=== PATIENT | female | born 1930 | race Caucasian/White ===

== ENCOUNTER 2017-08-31 09:38 | Day surgery (SDC) | payer MEDICARE ==
[2017-08-31] MEDS ORDERED: acetaZOLAMIDE TAB* 250 MG ONE (11:39)
[2017-08-31] MEDS ORDERED: Lidocaine 1% MPF* 2 ML VIAL ONE (11:39)
[2017-08-31] MEDS ORDERED: Buffered Lidocaine 0.9% SYRIN* 5 ML/SYR SYRINGE ONE (11:39)
[2017-08-31] MEDS ORDERED: Neomycin/Polymy/Dex OPTH.SUSP* MAXITROL 0.1% 5 ML ONE (11:39)
[2017-08-31] MEDS ORDERED: Povidone Iodine 5% OPTH* 30 ML BTL ONE (11:39)
[2017-08-31] MEDS ORDERED: Phenylephrine 2.5% OPTH.SOL* 2 ML BTL ONE (11:39)
[2017-08-31] MEDS ORDERED: Lidocaine 2% EPI 1:200000 MPF* 20 ML VIAL ONE (11:39)
[2017-08-31] MEDS ORDERED: Proparacaine 0.5% OPHTH.SOL* 15 ML BTL ONE (11:39)
[2017-08-31] MEDS ORDERED: Cyclopentolate 1% OPTH.SOL* 2 ML BTL ONE (11:39)
[2017-08-31] MEDS ORDERED: Ketorolac 0.5% OPHTH (NF) 0.5 % 5 ML BTL ONE (11:39)
[2017-08-31] MEDS ORDERED: Midazolam* 1 MG/ML 2 ML VIAL (2 MG) ONE ×2 (12:09→12:19)
--- NOTE | 2017-08-31 22:50 | OP ---
DATE OF OPERATION: 08/31/17 [facility] DATE OF : [birth year] SURGEON: Jonathan Garcia MD PREOPERATIVE DIAGNOSIS: Cataract, right eye. POSTOPERATIVE DIAGNOSIS: Cataract, right eye. OPERATIVE PROCEDURE: Phacoemulsification, right eye with IOL. DESCRIPTION OF PROCEDURE: The patient was brought to the operating room after being given 1/2% Alcaine with epinephrine drops in the preoperative area. The eye was prepped and draped in the usual sterile fashion. Sterile drape and eyelid speculum were placed. Again, topical 1/2% Alcaine with epinephrine was given. A paracentesis incision was made at the 9 o'clock position with the No.75 blade. Clear cornea incision 2.2 x 2.2-mm was created at the 12 o'clock position starting at the anterior limbus using the 2.2-mm keratome. The anterior chamber was irrigated with 0.4 mL of 1% non-preservative intracameral lidocaine and filled with DisCoVisc. A capsulorrhexis was completed using the cystotome and the Utrata forceps. Hydrodissection was performed with balanced salt solution. The lens nucleus was removed with the Phacoemulsification handpiece without incident. Cortex was removed with the irrigation-aspiration handpiece. The capsular bag was re-inflated using DisCoVisc and an SN60WF 24.5 implant was inserted with the shooter. The irrigation-aspiration handpiece was used to remove all residual DisCoVisc. The eye was refilled with balanced salt solution and the wound checked and found to be watertight. Topical Maxitrol drops were given. [id number]/[facility] #: [id number] [facility]
== END 2017-08-31 13:00 | disposition home or self-care (01) ==
LOC: OREAST 09:38
PROVIDERS: ATTEND Specialist
DX: H25.11 Age-related nuclear cataract, right eye (principal); H43.813 Vitreous degeneration, bilateral; E03.9 Hypothyroidism, unspecified; I10 Essential (primary) hypertension; H52.229 Regular astigmatism, unspecified eye; F41.9 Anxiety disorder, unspecified; M19.90 Unspecified osteoarthritis, unspecified site
CPT/HCPCS: A9270-GY; J2250; V2632

== ENCOUNTER 2017-09-28 07:36 | Day surgery (SDC) | payer MEDICARE ==
[2017-09-28] MEDS ORDERED: Buffered Lidocaine 0.9% SYRIN* 5 ML/SYR SYRINGE ONE (07:47)
[2017-09-28] MEDS ORDERED: Cyclopentolate 1% OPTH.SOL* 2 ML BTL ONE (07:47)
[2017-09-28] MEDS ORDERED: Phenylephrine 2.5% OPTH.SOL* 2 ML BTL ONE (07:47)
[2017-09-28] MEDS ORDERED: Lidocaine 1% MPF* 2 ML VIAL ONE (07:47)
[2017-09-28] MEDS ORDERED: Neomycin/Polymy/Dex OPTH.SUSP* MAXITROL 0.1% 5 ML ONE (07:47)
[2017-09-28] MEDS ORDERED: Povidone Iodine 5% OPTH* 30 ML BTL ONE (07:47)
[2017-09-28] MEDS ORDERED: Proparacaine 0.5% OPHTH.SOL* 15 ML BTL ONE (07:47)
[2017-09-28] MEDS ORDERED: acetaZOLAMIDE TAB* 250 MG ONE (07:47)
[2017-09-28] MEDS ORDERED: Ketorolac 0.5% OPHTH (NF) 0.5 % 5 ML BTL ONE (07:47)
[2017-09-28] MEDS ORDERED: Lidocaine 2% EPI 1:200000 MPF* 20 ML VIAL ONE (07:47)
--- NOTE | 2017-09-28 09:52 | OP ---
DATE OF OPERATION: 09/28/17 - [facility] DATE OF : [birth year] SURGEON: Jonathan Garcia M.D. PREOPERATIVE DIAGNOSIS: Cataract left eye. POSTOPERATIVE DIAGNOSIS: Cataract left eye. OPERATIVE PROCEDURE: Phacoemulsification left eye with IOL. DESCRIPTION OF PROCEDURE: The patient was brought to the operating room after being given 1/2% Alcaine with epinephrine drops in the preoperative area. The eye was prepped and draped in the usual sterile fashion. Sterile drape and eyelid speculum were placed. Again, topical 1/2% Alcaine with epinephrine was given. A paracentesis incision was made at the 3 o'clock position with the No.75 blade. Clear cornea incision 2.2 x 2.2-mm was created at the 6 o'clock position starting at the anterior limbus using the 2.2-mm keratome. The anterior chamber was irrigated with 0.4 mL of 1% non-preservative intracameral lidocaine and filled with DisCoVisc. A capsulorrhexis was completed using the cystotome and the Utrata forceps. Hydrodissection was performed with balanced salt solution. The lens nucleus was removed with the Phacoemulsification handpiece without incident. Cortex was removed with the irrigation-aspiration handpiece. The capsular bag was re-inflated using DisCoVisc and an SN60WF 24.5 Implant was inserted with the shooter. The irrigation-aspiration handpiece was used to remove all residual DisCoVisc. The eye was refilled with balanced salt solution and the wound checked and found to be watertight. Topical Maxitrol drops were given. [id number]/[facility] #: [id number] [facility]
== END 2017-09-28 10:06 | disposition home or self-care (01) ==
LOC: OREAST 07:36
PROVIDERS: ATTEND Specialist
DX: H25.12 Age-related nuclear cataract, left eye (principal); H43.813 Vitreous degeneration, bilateral; H52.229 Regular astigmatism, unspecified eye; E03.9 Hypothyroidism, unspecified; I10 Essential (primary) hypertension; F41.9 Anxiety disorder, unspecified
CPT/HCPCS: A9270-GY; V2632

== ENCOUNTER 2018-03-02 09:27 | Inpatient (IN) | payer MEDICARE ==
--- NOTE | 2018-02-17 23:26 | HP ---
HISTORY AND PHYSICAL: DATE OF ADMISSION/SURGERY: 03/02/18 DATE OF HISTORY AND PHYSICAL: 02/17/18 SURGEON: Dr. Bridget Sanders.* (DICTATED BY VANCE RIBEIRO) PROCEDURE: Left total knee replacement. CHIEF COMPLAINT: Left knee pain. HISTORY OF PRESENT ILLNESS: Ms. Guerra is an 88-year-old female with a 2-year history of increasingly severe left knee pain. This has gotten to a 5/5 pain in left knee. She has pain along the joint line, increased by walking more than half a block as well as climbing stairs. She does report that she is not able to do her typical activities due to the pain. She has tried anti- inflammatories, intra-articular injections, and physical therapy without improvement. At this point, would like to proceed with a left total knee replacement. She denies any history of DVT or PE, and has no previous problems with anesthesia. She had an EKG about 1 to 2 weeks ago by her PCP and has been cleared for surgery by her primary care. PAST MEDICAL HISTORY: Includes mild cognitive impairment, anxiety, hypertension , and hypothyroidism. PAST SURGICAL HISTORY: Includes appendectomy and D and C as well as excision. MEDICATIONS: 1. Alprazolam ER 0.5 mg. 2. Hydrochlorothiazide 25 mg. 3. Liothyronine 5 mcg. 4. Lisinopril 20 mg. 5. Memantine HCl 10 mg b.i.d. ALLERGIES: VICODIN, which causes nausea. FAMILY MEDICAL HISTORY: She denies. SOCIAL HISTORY: She denies any tobacco use. She has one drink of alcohol per week, and she denies any illicit drug use. REVIEW OF SYSTEMS: Positive for history of thyroid disease as well as anxiety as well as her current complaint as outlined in the HPI above. She does endorse the ability to walk a city block or flight of stairs without being stopped for shortness of breath or chest pain. Otherwise, a 12-point system review was grossly negative. PHYSICAL EXAMINATION GENERAL: She is a well-nourished, well-developed, 88-year-old female, in no acute distress. Alert and oriented x3 with no gross neurological deficiencies. She has an antalgic gait, which she is favoring her left knee. VITAL SIGNS: Height 65 inches, weight 134 pounds, pulse 108, blood pressure 142 /84, BMI 22.3. HEENT: Normocephalic, atraumatic. Pupils are equally round and reactive to light. Extraocular movements grossly intact. NECK: Supple. No palpable cervical lymph nodes. Thyroid is smooth and nontender. PULMONARY: Lungs are clear to auscultation bilaterally with no wheezes, rales, or rhonchi. CARDIAC: Regular rate and rhythm with no murmurs, rubs, or gallops appreciated. No pedal edema bilaterally. 2+ DP and PT pulses bilaterally. MUSCULOSKELETAL: Her left lower extremity, skin is intact. No abrasions or open wounds. Moderate effusion at the knee. Arthritic-appearing joint along the medial joint line. No palpable masses or lymph nodes. No varus or valgus instability. Range of motion is from 10 to 120 degrees flexion with pain and patellofemoral crepitus. Distally, there is no edema or varicosities or hyperreflexia. She is neurovascularly intact distally. DIAGNOSTIC STUDIES: Multiple views of the left knee were reviewed on the PAC system showing [id number] contact in the medial joint space, tri- compartmental joint space narrowing, osteophyte formation, and subchondral sclerosis as well. PLAN: Candace Guerra is scheduled to undergo left total knee replacement with Dr. Bridget Sanders on 03/02/18. She will return to clinic 10 to 14 days after surgery for followup and suture removal. She did mention today that she is concerned about going directly home and will likely require rehab as she has no one to take care of her at home. She will be prescribed pain medication on discharge from the hospital and will be on Coumadin for DVT prophylaxis. All questions were answered today. VANCE RIBEIRO [id number]/[facility] #: [id number] [facility]
[~2018-03-02 09:27] MED LIST: Buffered Lidocaine 0.9% SYRIN* 5 ML/SYR SYRINGE INTRADERM ONE; Dexamethasone IV* 4 MG/ML 1 ML (4 MG) IV SLOW PU ONE; Famotidine TAB* 20 MG PO ONE; Lidocaine 2% PF * 5 ML VIAL ONE; Midazolam* 1 MG/ML 2 ML VIAL (2 MG) ONE; Propofol* 500 MG/50 ML BTL ONE; fentaNYL* 50 MCG/ML 2 ML VIAL (100 MCG VIAL) ONE
[2018-03-02] MEDS ORDERED: Propofol* 10 MG/ML 20 ML BTL IV PUSH ONE (09:31)
[2018-03-02] MEDS ORDERED: fentaNYL* 50 MCG/ML 2 ML VIAL (100 MCG VIAL) ONE (09:32)
[2018-03-02] MEDS ORDERED: Famotidine TAB* 20 MG ONE (09:36)
[2018-03-02] MEDS ORDERED: Buffered Lidocaine 0.9% SYRIN* 5 ML/SYR SYRINGE ONE (09:37)
[2018-03-02] MEDS ORDERED: Dexamethasone IV* 4 MG/ML 1 ML (4 MG) ONE (09:37)
[2018-03-02] MEDS ORDERED: Morphine PF AMP (0.5MG/ML)* 5 MG/10 ML AMP ONE (11:47)
[2018-03-02] MEDS ORDERED: Bupivacaine 0.5%* 50 ML VIAL ONE (12:00)
[2018-03-02] MEDS ORDERED: ceFAZolin 2 GM PREMIX (*) 2 GM/50 ML BAG IVPB ONE (12:09)
[2018-03-02] MEDS ORDERED: Ondansetron INJ* 2 MG/ML VIAL ONE (12:33)
[2018-03-02] MEDS ORDERED: diPHENhydraMINE IV* 50 MG/ML 1 ml VIAL (BENADRYL) IV PRN ×2 (12:49→12:51)
[2018-03-02] MEDS ORDERED: oxyCODONE TAB* 5 MG TAB PO PRN ×2 (12:49→12:51)
[2018-03-02] MEDS ORDERED: Ondansetron INJ* 2 MG/ML VIAL IV PRN ×2 (12:49→12:51)
[2018-03-02] MEDS ORDERED: fentaNYL* 50 MCG/ML 2 ML VIAL (100 MCG VIAL) IV PRN (12:49)
[2018-03-02] MEDS ORDERED: PROCHLORPERAZINE INJ 5 MG/ML 2 ML VIAL IV PRN ×2 (12:49→12:51)
[2018-03-02] MEDS ORDERED: Naloxone* 0.4 MG/ML 1 ML VIAL IV PRN ×2 (12:49→12:55)
[2018-03-02] MEDS ORDERED: HYDROmorphone INJ* 1 MG/ML CARPUJECT SYRINGE IV PRN (12:49)
[2018-03-02] MEDS ORDERED: EPHEDrine (Pressors)* 50 MG/ML VIAL IV PUSH PRN (12:51)
[2018-03-02] MEDS ORDERED: Acetaminophen TAB* 325 MG PO PRN (12:51)
[2018-03-02] MEDS ORDERED: OBEPIDURAL* 250 ML EPIDURAL SCH (13:00)
[2018-03-02] MEDS ORDERED: Bisacodyl SUPP* 10 MG SUPP PR PRN (13:17)
[2018-03-02] MEDS ORDERED: Magnesium Hydroxide LIQ* 30 ML UDC PO PRN (13:17)
--- NOTE | 2018-03-02 15:17 | RAD ---
INDICATION: Status post total left knee replacement surgery. COMPARISON: Comparison is made with prior study from October 24, 2017. TECHNIQUE: 2 views of the left knee were obtained. FINDINGS: The patient is status post total left hip replacement surgery. The bones and prostheses are in normal alignment. There is a surgical drain present adjacent to the anterior distal aspect of the femur. IMPRESSION: STATUS POST TOTAL LEFT KNEE REPLACEMENT SURGERY.
[2018-03-02] MEDS ORDERED: Warfarin TAB(*) 6 MG PO ONE (17:00)
[2018-03-02] MEDS: D5W 1/2 NS 1000 ML BAG* 1,000 ML IV SCH (18:08)
[2018-03-02] MEDS: ceFAZolin 1 GM in Dextrose (*) 1 GM/50 ML BAG IVPB SCH (19:30)
[2018-03-02] MEDS: Docusate CAP* 100 MG PO SCH (19:33)
[2018-03-02] MEDS: Magnesium Hydroxide LIQ* 30 ML UDC PO SCH (19:33)
[2018-03-02] MEDS: Memantine TAB* 5 MG PO SCH (19:33)
[2018-03-02] MEDS: Mirtazapine TAB* 15 MG PO SCH (19:37)
[2018-03-02] MEDS: Scopolamine 1.5 mg* PATCH TRANSDERM SCH (19:38)
--- NOTE | 2018-03-02 21:35 | CONS ---
CC: Dr. Browne; Dr. Bridget Sanders; Dr. Darrin Cobb * CONSULTATION REPORT: DATE OF CONSULT: 03/02/18 PRIMARY CARE PROVIDER: Dr. Browne. CONSULTING PROVIDER: Dr. Bridget Sanders. MY ATTENDING WHILE IN THE HOSPITAL: Dr. Darrin Cobb. REASON FOR CONSULT: Comanagement of comorbid medical conditions. HISTORY OF PRESENT ILLNESS: Ms. Guerra is an 88-year-old female with past medical history significant for mild cognitive impairment, hypertension, hypothyroidism, recent pneumonia, and osteoarthritis in her left knee. The patient has just undergone a left total knee replacement. The patient had spinal anesthesia and estimated blood loss of 250 mL. The patient is seen postoperatively and is doing very well. The patient denies any pain. The patient has no sensation in her lower extremities. The patient is thirsty. The patient has no shortness of breath, chest pain, nausea, vomiting, dizziness , palpitations. The patient has had no recent illnesses except for pneumonia in November. The patient was first prescribed azithromycin and then changed to "a stronger antibiotic" she is unknown if it is quinolone or not. The patient has also had asymptomatic urinary tract infection 1 week ago and was treated with Bactrim. The patient had no other recent changes in diet, medications, exercise tolerance, swelling in her legs or other alarming symptoms. PAST MEDICAL HISTORY: Mild cognitive impairment, anxiety, hypertension, hypothyroidism, pneumonia. PAST SURGICAL HISTORY: Appendectomy, D and C, breast lump excision. MEDICATIONS: 1. Alprazolam 0.5 mg p.o. t.i.d. as needed. 2. Mirtazapine 15 mg p.o. at bedtime. 3. Metamucil 660 g p.o. q.p.m. 4. Casper-3 fatty acid 1 each p.o. q.a.m. 5. Melatonin 5 mg p.o. q.p.m. 6. Lutein 40 mg p.o. q.a.m. 7. Cholecalciferol 1000 units p.o. q.a.m. 8. Ascorbic acid 3000 mg p.o. q.a.m. 9. Ibuprofen 200 mg p.o. daily as needed. 10. Tylenol 1000 mg p.o. b.i.d. as needed. 11. Mucinex 1 tab p.o. b.i.d. as needed. 12. Memantine 10 mg p.o. b.i.d. 13. Lisinopril 20 mg p.o. q.a.m. 14. Levothyroxine 50 mcg p.o. q.a.m. 15. Hydrochlorothiazide 12.5 mg p.o. q.a.m. 16. Glucosamine 2000 mg p.o. q.p.m. ALLERGIES: VICODIN, which causes nausea. FAMILY HISTORY: The patient's mother of colon cancer. The patient's father of emphysema. The patient has 4 children, all are healthy except for 1 son who had a stent. SOCIAL HISTORY: The patient had smoked two packs a week from the age of 17 to 1979. The patient has one drink of alcohol a week. The patient denies any illicit drug use. The patient lives with her . 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 REVIEW OF SYSTEMS: A 14-point review of systems was reviewed and is negative except as above. PHYSICAL EXAM: General: The patient is an 88-year-old female, who appears younger than stated age and sitting comfortably in bed, in no acute distress. Vital Signs: Temperature 97.2, pulse rate 86, respiratory rate 12, oxygen saturation 99% on 4 L, blood pressure 110/73. HEENT: Head normocephalic, atraumatic. Sclerae anicteric. No conjunctival injection. Nasal mucosa is moist. Oral mucosa moist. No pharyngeal erythema, discharge, or exudate. Neck : Supple. Nontender. No lymphadenopathy. No carotid bruits auscultated. No JVD. Cardiac: Regular rate and rhythm. No clicks, murmurs, gallops, or rubs. Pulses 2+ in bilateral dorsalis pedis, posterior tibial, and radial areas. Respiratory: Clear to auscultation bilaterally. No wheezes, rales, or rhonchi. Good air exchange bilaterally. Abdomen: Soft, nontender, nondistended. Bowel sounds normoactive in all 4 quadrants. No hepatosplenomegaly. No abdominal bruits auscultated. Skin: Clean, dry, and intact. No rash except for left-sided surgical incision covered with bulky dressing. Neuro: Cranial nerves II through XII intact. No focal deficits. Decreased sensation, but preserved motor function in the bilateral lower extremities. Psychiatric: Very pleasant and cooperative. LABORATORY DATA: From 02/17/18, white blood cell count 5.4, hemoglobin 12.5, hematocrit 38, platelet count 231. INR 0.88, aPTT 35.5. Sodium 138, potassium 3.5, chloride 105, carbon dioxide 26, anion gap 7, BUN 16, creatinine 0.97, glucose 93, calcium 91. Bilirubin 0.5, AST 19, ALT 15, alkaline phosphatase 70. Urine is unremarkable. ASSESSMENT AND PLAN: Ms. Guerra is an 88-year-old female status post left total knee replacement with past medical history of mild cognitive impairment, hypertension, hypothyroidism, pneumonia. The patient is doing well post- operatively. 1. Status post left total knee replacement. Management per primary team. The patient preferred to start with Tylenol for pain control. The patient has allergy to VICODIN. No harsh reaction to other opiate pain medications. The patient has no pain at this time. The patient was not anemic preoperatively. H and H should be monitored. Bowel regimen per primary team. 2. Hypertension. The patient is currently normotensive. The patient took her hydrochlorothiazide on the morning of surgery, but not her lisinopril. Both of these will be held tomorrow morning due to spinal anesthesia and reintroduced as needed, they can be reintroduced sooner if needed. 3. Anxiety. Continue the patient's alprazolam as needed. Caution should be used with co-administration with opiates. 4. Hypothyroidism. Continue Synthroid. 5. History of pneumonia. The patient should be instructed on the use of incentive spirometer. 6. DVT prophylaxis. Lovenox to warfarin per primary team. 7. FEN. The patient will have fluids per primary team. Caution should be used due to patient's age. 8. Code status. The patient will be full code. The patient's surrogate decision maker is her daughter, Suyapa Palacio. 9. Disposition. The patient admitted inpatient, disposition per primary team. TIME SPENT: Approximately 60 minutes was spent on this consultation, 30 of which was spent [id number] with the patient, obtaining history and physical and discussing treatment plan. This plan has been discussed with my attending, Dr. Darrin Cobb; he is in agreement. VANCE JOSEPH [id number]/[facility] #: [id number] [facility]
[2018-03-03] MEDS: ceFAZolin 1 GM in Dextrose (*) 1 GM/50 ML BAG IVPB SCH ×2 (03:56→12:17)
[2018-03-03] MEDS: Levothyroxine TAB* 50 MCG TAB PO SCH (05:37)
[2018-03-03] MEDS: oxyCODONE/Acetamin 5/325 MG* TAB PO PRN ×4 (05:38→20:52)
[2018-03-03] MEDS ORDERED: diPHENhydraMINE IV* 50 MG/ML 1 ml VIAL (BENADRYL) IV PRN (06:00)
[2018-03-03] MEDS ORDERED: Ondansetron INJ* 2 MG/ML VIAL IV PRN (06:00)
[2018-03-03] MEDS ORDERED: Morphine INJ* 2 MG/ML 1 ML CARPUJECT IV PRN (06:00)
[2018-03-03 06:42] LABS: Hematocrit 28 % (35-47); Hemoglobin 9.4 g/dl (12.0-16.0); Mean Platelet Volume 7.4 um3 (7.4-10.4); Platelet Count 206 10^3/ul (150-450)
[2018-03-03 06:52] LABS: INR 0.96 (0.77-1.02)
[2018-03-03 06:59] LABS: EGFR Non-African American 50.5 (>60)
--- NOTE | 2018-03-03 08:22 | OP ---
DATE OF OPERATION: 03/02/18 - ROOM #350 DATE OF : [birth year] SURGEON: Bridget Sanders MD QUALITY INSPECTOR: VANCE Amor. Ms. Wong did help throughout the procedure with preparation of the leg, wound retraction, manipulation of the knee and wound closure. ANESTHESIOLOGIST: Dr. Riveor. ANESTHESIA: Spinal. PRE-OP DIAGNOSIS: Severe end-stage degenerative osteoarthritis of the left knee joint. POST-OP DIAGNOSIS: Severe end-stage degenerative osteoarthritis of the left knee joint. OPERATIVE PROCEDURE: Left total knee arthroplasty. COMPLICATIONS: None. TOURNIQUET TIME: 46 minutes. ESTIMATED BLOOD LOSS: 300 cc. SPECIMENS: Bone and cartilage from the left knee joint sent to Pathology. HARDWARE USED: Hardware was a cemented [employer] total knee arthroplasty hardware. Two packages of Simplex bone cement. For the femur, a size 5 left posterior stabilized narrow Legion femoral component. For the tibia , a size 3 left tibial baseplate Cory II. For the insert, an 11 mm posterior stabilized articular insert, size 3/4. For the patella, a size 32-mm 3-peg all poly patella with 7.5 thickness. BRIEF HISTORY/INDICATIONS: Ms. Guerra is an 88-year-old female with years of increasingly severe left knee pain. Over the last 6 months, the pain became excruciating and she was hardly able to ambulate. Radiograph showed severe bone -on- bone arthritis. The patient has failed conservative treatment, anti- inflammatories, pain medications, intra-articular injections, as well as ambulatory assistive devices. She elected to undergo left total knee arthroplasty due to decreased quality of life and uncontrolled pain. Informed consent was obtained from the patient. She understood the risks of the surgery included but were not limited to, bleeding infection, damage to nearby structures, continued pain, need for further surgery, intraoperative fracture, nerve palsy, hardware failure or loosening, knee stiffness, loss of motion, stroke, heart attack, blood clot and . She wished to proceed. INTRAOPERATIVE FINDINGS: Intraoperatively, the patient was noted to have severe end-stage arthritis with tricompartmental loss of cartilage. She had extensive osteophyte formation. DESCRIPTION OF PROCEDURE: Ms. Gurera was identified in the preanesthesia unit. Her left lower extremity was marked as the correct operative side. Informed consent was signed and placed in the chart. The patient was taken to the operating room and placed under spinal anesthesia. A Holman catheter was placed. Tourniquet was placed on the left thigh. The left lower extremity was prepped and draped in the usual sterile fashion. Preop time-out was made to correctly identify the patient, side and site. Appropriate perioperative antibiotics were given within 1 hour of incision. Tourniquet was inflated and total tourniquet time for this procedure was 46 minutes. A midline incision was made with a 10 blade and carried down to the extensor mechanism. A new 10 blade was used to make a standard medial parapatellar arthrotomy. The patella was subluxed laterally. Electrocautery was used to subperiosteally elevate the soft tissue off the superomedial tibia to the mid sagittal plane. The knee was flexed up. The anterior horn of the lateral meniscus and ACL were sharply released. A drill was used to enter the distal femur. Intramedullary distal femoral cutting guide was pinned on the distal femur. Oscillating saw was used to make the distal femoral cut. Next, the external rotation guide was pinned on the distal femur. Distal femur was sized to a size 5. Size 5 multi cutting jig was pinned on the distal femur. Oscillating saw was used to make the appropriate chamfer cuts. Extramedullary tibial cutting guide was pinned on the proximal tibia. The oscillating saw was used to make the proximal tibial cut perpendicular to the mechanical axis of the tibia. The bone was carefully removed. The knee was brought out into full extension. A spacer block had good fit with the knee in full extension. Medial and lateral ligaments were well balanced. Some osteophytes were removed from along the medial tibial plateau. Flexion and extension gaps were well balanced. The knee was flexed up. Lamina personal service workers was placed both medially and laterally. Any remaining meniscus was carefully removed using electrocautery. Curved osteotome was used to remove posterior osteophytes. Tibial tray and drop yoselyn were placed and once again confirmed a satisfactory tibial cut. A left size 5 narrow femoral trial was impacted on to the distal femur and had good fit. The box for the posterior stabilized implant was prepared using a reamer and box cut osteotome. Size 3 tibial tray trial with an 11 mm insert trial was placed. The knee was taken through a range of motion and had full extension to 130 degrees of flexion. There was satisfactory patellofemoral tracking. The patella was everted. 7 mm of patellar bone and cartilage were carefully removed using an oscillating saw. The patella was sized to a size 32. Three peg holes were drilled through the size 32 guide. The 32 trial patella with 7.5 thickness was placed and the knee was taken through a range of motion. There was satisfactory patellofemoral tracking. All trials were carefully removed. The tibia was subluxed anteriorly and sized to a size 3. Proximal tibia was prepared using a size 3 keel punch. All bony cut surfaces were copiously irrigated with sterile saline and dried. Final implants were cemented into place, starting with the tibia followed by the femur and last the patella. An 11-mm insert was placed and the knee was brought into full extension. Tourniquet was turned down at 46 minutes. The knee was copiously irrigated with sterile saline. Electrocautery was used to obtain meticulous hemostasis. Once the cement had fully cured, the insert trial was removed. Any excess cement was removed from around the capsule and hardware. Final insert chosen was an 11 mm posterior stabilized articular insert cory II size 3/4. This was locked into position on the tibial tray. Stability of the insert was checked and rechecked and noted to be stable. The extensor mechanism was closed using interrupted #1 Vicryl over a medium Hemovac drain. The rest of the incision was closed in a layered fashion using 0 and 2-0 Vicryl. The skin was closed using running 3-0 nylon suture. Sterile Xeroform, 4 x 4s, and Webril were used to cover the incision. Gary wrap and cold pack were placed over this. The patient's anesthesia was reversed without difficulty. She was taken to the PACU in stable condition. Intended weightbearing will be weightbearing as tolerated. Intended DVT prophylaxis will be Coumadin with a Lovenox bridge. [id number]/[facility] #: [id number] [facility]O
[2018-03-03] MEDS ORDERED: NON FORMULARY MED* (Lisinopril [Prinivil Tab 20 Mg] 20 MG) PO SCH (09:00)
[2018-03-03] MEDS ORDERED: Hydrochlorothiazide TAB* 25 MG PO SCH (09:00)
[2018-03-03] MEDS: Memantine TAB* 5 MG PO SCH ×2 (09:15→20:56)
[2018-03-03] MEDS: Vitamin THERAPEUTIC TAB PO SCH (09:15)
[2018-03-03] MEDS: Docusate CAP* 100 MG PO SCH ×2 (09:17→20:52)
[2018-03-03] MEDS: Magnesium Hydroxide LIQ* 30 ML UDC PO SCH ×2 (09:17→20:52)
--- NOTE | 2018-03-03 11:26 | PN ---
Progress Note - Progress Note Date of Service: 03/03/18 SOAP: Subjective: 88 y/o female s/p L TKA by Dr Sanders. VSS, afebrile overnight. Patient reports pain controlled well at times, other times with increased pain. Concerned about falling, still unsteady at times. Objective: General- Well appearing, NAD, AO resting in bed comfortably, daughter at bedside. MSK- LLE- DF/PF = b/l, PT 2+, negative homans sign, surgical dressing intact, no drainage, odor noted. SITLT Vital Signs Temp 97.8 F 03/03/18 07:57 Pulse 65 03/03/18 07:57 Resp 18 03/03/18 09:17 BP 101/40 03/03/18 07:57 Pulse Ox 100 03/03/18 08:00 Intake & Output 03/02/18 03/03/18 03/03/18 18:59 06:59 18:59 Intake Total 1876 044 8305 Output Total 1100 525 Balance 275 356 3076 Weight 61.235 kg Intake: IV Fluids 1900 1070 D5W 1/2 NS 1070 LR 1900 IVPB 50 ABX - CEFAZOLIN 50 Oral 710 220 Output: Holman 800 525 Residual 50 Holman 16 Fr 50 Estimated Blood Loss 250 Other: # Bowel Movements 0 Assessment: Stable 88 y/o female s/p L TKA by Dr Sanders Plan: - DVT prophylaxis- lovenox, coumadin 5mg tonight. - Continue PT/ OT - Follow up with Dr. Sanders within 10-14 days post-op - H&H - stable - post-op IV ABX - running - Likely rehab due to age, living alone- nathan vs [facility] Acetaminophen (Tylenol Tab*) 650 mg PO Q4H PRN PRN Reason: PAIN OR TEMPERATURE Alprazolam (Xanax Tab*) 0.5 mg PO TID PRN PRN Reason: ANXIETY Bisacodyl (Dulcolax Supp*) 10 mg [place] DAILY PRN PRN Reason: constipation Cyclobenzaprine HCl (Flexeril Tab*) 5 mg PO TID PRN PRN Reason: SPASMS Diphenhydramine HCl (Benadryl Iv*) 12.5 mg IV Q6H PRN PRN Reason: PRURITIS Docusate Sodium (Colace Cap*) 100 mg PO BID [facility] Last Admin: 03/03/18 09:17 Dose: Not Given Enoxaparin Sodium (Lovenox(*)) 30 mg SUBCUT Q24H [facility] Dextrose/Sodium Chloride (D5w 1/2 Ns 1000 Ml Bag*) 1,000 mls @ 75 mls/hr IV PER RATE [facility] Last Admin: 03/02/18 18:08 Dose: 75 mls/hr Cefazolin Sodium/Dextrose (Kefzol 1 Gm In Dextrose Duplex (*)) 1 gm in 50 mls @ 200 mls/hr IVPB Q8H [facility] Stop: 03/03/18 12:14 Last Admin: 03/03/18 03:56 Dose: 200 mls/hr Levothyroxine Sodium (Synthroid Tab*) 50 mcg PO 0600 [facility] Last Admin: 03/03/18 05:37 Dose: 50 mcg Magnesium Hydroxide (Milk Of Magnesia Liq*) 30 ml PO BID [facility] Last Admin: 03/03/18 09:17 Dose: Not Given Magnesium Hydroxide (Milk Of Magnesia Liq*) 30 ml PO Q6H PRN PRN Reason: constipation Memantine (Namenda Tab*) 10 mg PO BID [facility] Last Admin: 03/03/18 09:15 Dose: 10 mg Mirtazapine (Remeron Tab*) 15 mg PO BEDTIME [facility] Last Admin: 03/02/18 19:37 Dose: 15 mg Morphine Sulfate (Morphine Inj (Syringe)*) 2 mg IV Q2H PRN PRN Reason: PAIN Multivitamins (Theragran Tab*) 1 tab PO DAILY [facility] Last Admin: 03/03/18 09:15 Dose: 1 tab Naloxone HCl (Narcan*) 0.08 mg IV Q2M PRN PRN Reason: severe induced resp depression Stop: 03/03/18 12:48 Naloxone HCl (Narcan*) 0.08 mg IV Q2M PRN PRN Reason: severe induced resp depression Stop: 03/03/18 12:54 Ondansetron HCl (Zofran Inj*) 4 mg IV Q6H PRN PRN Reason: nausea Oxycodone HCl (Roxycodone Tab*) 5 mg PO ONCE PRN PRN Reason: PAIN - MODERATE Stop: 03/03/18 19:00 Oxycodone/Acetaminophen (Percocet 5/325 Tab*) 2 tab PO Q4H PRN PRN Reason: PAIN - MODERATE TO SEVERE Oxycodone/Acetaminophen (Percocet 5/325 Tab*) 1 tab PO Q4H PRN PRN Reason: PAIN - MODERATE Last Admin: 03/03/18 05:38 Dose: 1 tab Pharmacy Profile Note (Scopolamine Patch Remove*) 1 note PATCH OFF .AFTER 72 HOURS ONE Stop: 03/05/18 12:53 Scopolamine (Transderm-Scop 1.5 Mg Patch*) 1 patch TRANSDERM Q72H [facility] Last Admin: 03/02/18 19:38 Dose: Not Given
[2018-03-03] MEDS: Enoxaparin(*) 30 MG/0.3 ML SYR SUBCUT SCH (12:17)
[2018-03-03] MEDS: Cyclobenzaprine TAB* 10 MG PO PRN ×2 (12:23→23:55)
[2018-03-03] MEDS ORDERED: Morphine VIAL* 4 MG/ML VIAL (1 ml vial) IV PRN (13:41)
[2018-03-03] MEDS ORDERED: Morphine VIAL* 4 MG/ML VIAL (1 ml vial) IV ONE (13:42)
[2018-03-03] MEDS: D5W 1/2 NS 1000 ML BAG* 1,000 ML IV SCH ×2 (14:39→19:30)
[2018-03-03] MEDS ORDERED: Warfarin TAB(*) 5 MG PO ONE (17:00)
[2018-03-03] MEDS ORDERED: oxyCODONE TAB* 5 MG TAB ONE (17:18)
[2018-03-03] MEDS ORDERED: oxyCODONE TAB* 5 MG TAB PO PRN (17:22)
[2018-03-03] MEDS ORDERED: NS 0.9% 500 ML* 500 ML IV ONE (19:00)
--- NOTE | 2018-03-03 19:20 | PN ---
Hospitalist Progress Note Date of Service: 03/03/18 CAT CALL for hypotension 70/40s in 88 female with left knee surgery. Complaint of associated light headedness/malaise. Happened also working in PT earlier today. no history of CHF. 500cc NS given with improvement on manual check 100s/60s. improved mentation. Afebrile, HR 70s. EKG NSR Concern for vasovagal presyncope related to pain and previously PT. AM Hgb was 9.3. Pt on coumadin, lovenox CBC, CMP, Lactic Acid, Troponin pending. telemetry started. keep in SSU for now. manual pressures if automatic low. continue pain control as ordered.
[2018-03-03 19:24] LABS: ABS Basophils 0.1 10^3/ul (0-0.2); ABS Eosinophils 0.1 10^3/ul (0-0.6); ABS Lymphocytes 1.2 10^3/ul (1.0-4.8); ABS Monocytes 0.8 10^3/ul (0-0.8); ABS Neutrophils 6.2 10^3/ul (1.5-7.7); ABS Nucleated RBC 0 10^3/ul; Eosinophil % 0.6 % (0-6); Hematocrit 25 % (35-47); Hemoglobin 8.5 g/dl (12.0-16.0); Lymphocyte % 14.7 % (25-47); Mean Corpuscular HGB Conc 34 g/dl (31-36); Mean Corpuscular Hemoglobin 31 pg (27-31); Mean Corpuscular Volume 90 fL (80-97); Mean Platelet Volume 7.3 um3 (7.4-10.4); Nucleated Red Blood Cells % 0; Platelet Count 191 10^3/ul (150-450); Red Blood Count 2.74 10^6/ul (4.0-5.4); Red Cell Distribution Width 14 % (10.5-15); White Blood Count 8.4 10^3/ul (3.5-10.8)
[2018-03-03 19:39] LABS: EGFR Non-African American 47.3 (>60)
[2018-03-03] MEDS: Mirtazapine TAB* 15 MG PO SCH (20:52)
[2018-03-03] MEDS: Morphine VIAL* 4 MG/ML VIAL (1 ml vial) IV PRN (22:51)
[2018-03-04] MEDS: D5W 1/2 NS 1000 ML BAG* 1,000 ML IV SCH (00:30)
[2018-03-04] MEDS: oxyCODONE/Acetamin 5/325 MG* TAB PO PRN ×2 (03:03→07:58)
[2018-03-04] MEDS: Morphine VIAL* 4 MG/ML VIAL (1 ml vial) IV PRN (03:03)
[2018-03-04] MEDS: ALPRAZolam TAB* 0.25 MG PO PRN ×2 (03:46→18:26)
[2018-03-04] MEDS ORDERED: Morphine VIAL* 4 MG/ML VIAL (1 ml vial) IV PRN (04:03)
[2018-03-04] MEDS ORDERED: Morphine VIAL* 4 MG/ML VIAL (1 ml vial) IV ONE (04:06)
[2018-03-04] MEDS: Levothyroxine TAB* 50 MCG TAB PO SCH (05:53)
[2018-03-04 06:20] LABS: Hematocrit 26 % (35-47); Hemoglobin 8.9 g/dl (12.0-16.0); Platelet Count 172 10^3/ul (150-450)
[2018-03-04 06:29] LABS: INR 1.16 (0.77-1.02)
[2018-03-04] MEDS: Cyclobenzaprine TAB* 10 MG PO PRN ×2 (07:23→19:04)
--- NOTE | 2018-03-04 07:54 | PN ---
Subjective Date of Service: 03/04/18 Interval History: CAT team called last evening for hypotension. BP was 70s/40s while Ms. Guerra was working with PT, and it improved after 500cc NS. This morning, she feels good except for pain in the knee. No chest pain, sob, palpitations, nausea. Objective Active Medications: Acetaminophen (Tylenol Tab*) 650 mg PO Q4H PRN PRN Reason: PAIN OR TEMPERATURE Alprazolam (Xanax Tab*) 0.5 mg PO TID PRN PRN Reason: ANXIETY Last Admin: 03/04/18 03:46 Dose: 0.5 mg Bisacodyl (Dulcolax Supp*) 10 mg [place] DAILY PRN PRN Reason: constipation Cyclobenzaprine HCl (Flexeril Tab*) 5 mg PO TID PRN PRN Reason: SPASMS Last Admin: 03/03/18 23:55 Dose: 5 mg Diphenhydramine HCl (Benadryl Iv*) 12.5 mg IV Q6H PRN PRN Reason: PRURITIS Docusate Sodium (Colace Cap*) 100 mg PO BID [facility] Last Admin: 03/03/18 20:52 Dose: 100 mg Enoxaparin Sodium (Lovenox(*)) 30 mg SUBCUT Q24H [facility] Last Admin: 03/03/18 12:17 Dose: 30 mg Dextrose/Sodium Chloride (D5w 1/2 Ns 1000 Ml Bag*) 1,000 mls @ 125 mls/hr IV PER RATE [facility] Last Admin: 03/04/18 00:30 Dose: 125 mls/hr Levothyroxine Sodium (Synthroid Tab*) 50 mcg PO 0600 [facility] Last Admin: 03/04/18 05:53 Dose: 50 mcg Magnesium Hydroxide (Milk Of Magnesia Liq*) 30 ml PO BID [facility] Last Admin: 03/03/18 20:52 Dose: 30 ml Magnesium Hydroxide (Milk Of Magnesia Liq*) 30 ml PO Q6H PRN PRN Reason: constipation Memantine (Namenda Tab*) 10 mg PO BID [facility] Last Admin: 03/03/18 20:56 Dose: 10 mg Mirtazapine (Remeron Tab*) 15 mg PO BEDTIME [facility] Last Admin: 03/03/18 20:52 Dose: 15 mg Morphine Sulfate (Morphine Vial*) 1 mg IV Q2H PRN PRN Reason: PAIN Multivitamins (Theragran Tab*) 1 tab PO DAILY [facility] Last Admin: 03/03/18 09:15 Dose: 1 tab Ondansetron HCl (Zofran Inj*) 4 mg IV Q6H PRN PRN Reason: nausea Last Admin: 03/04/18 04:11 Dose: 4 mg Oxycodone HCl (Roxycodone Tab*) 5 mg PO Q4H PRN PRN Reason: PAIN Last Admin: 03/04/18 05:59 Dose: 5 mg Oxycodone/Acetaminophen (Percocet 5/325 Tab*) 2 tab PO Q4H PRN PRN Reason: PAIN - MODERATE TO SEVERE Last Admin: 03/04/18 03:03 Dose: 2 tab Oxycodone/Acetaminophen (Percocet 5/325 Tab*) 1 tab PO Q4H PRN PRN Reason: PAIN - MODERATE Last Admin: 03/03/18 11:53 Dose: 1 tab Pharmacy Profile Note (Scopolamine Patch Remove*) 1 note PATCH OFF .AFTER 72 HOURS ONE Stop: 03/05/18 12:53 Scopolamine (Transderm-Scop 1.5 Mg Patch*) 1 patch TRANSDERM Q72H [facility] Last Admin: 03/02/18 19:38 Dose: Not Given Vital Signs - 8 hr 03/03/18 03/03/18 03/03/18 23:51 23:52 23:55 Temperature 98.1 F Pulse Rate 94 Respiratory 16 18 18 Rate Blood Pressure 141/62 (mmHg) O2 Sat by Pulse 98 Oximetry 03/04/18 03/04/18 03/04/18 02:40 03:01 03:03 Temperature Pulse Rate 97 Respiratory 18 18 18 Rate Blood Pressure 163/62 (mmHg) O2 Sat by Pulse 95 Oximetry 03/04/18 03/04/18 03/04/18 03:21 03:46 05:56 Temperature 98.0 F 97.2 F Pulse Rate 97 Respiratory 18 18 Rate Blood Pressure 144/76 (mmHg) O2 Sat by Pulse 97 Oximetry 03/04/18 03/04/18 05:59 06:00 Temperature Pulse Rate Respiratory 18 18 Rate Blood Pressure (mmHg) O2 Sat by Pulse Oximetry Oxygen Devices in Use Now: None Appearance: alert, sitting up in recliner, no distress Eyes: No Scleral Icterus Ears/Nose/Mouth/Throat: NL Teeth, Lips, Gums Neck: NL Appearance and Movements; NL JVP Respiratory: Symmetrical Chest Expansion and Respiratory Effort, Clear to Auscultation Cardiovascular: NL Sounds; No Murmurs; No JVD, RRR, No Edema Abdominal: NL Sounds; No Tenderness; No Distention Lymphatic: No Cervical Adenopathy Extremities: No Edema Skin: No Rash or Ulcers Result Diagrams: 03/04/18 06:07 03/03/18 19:12 Assess/Plan/Problems-Billing Assessment: 88 yo female with history of htn admitted for elective R TKA - Patient Problems (1) Orthostatic hypotension Current Visit: Yes Status: Acute Code(s): I95.1 - ORTHOSTATIC HYPOTENSION SNOMED Code(s): 97151847 Comment: received D51/2NS overnight BP acceptable this morning hold am bp meds check orthostatic vitals today and resume antihypertensives as needed (2) S/P total knee arthroplasty Current Visit: Yes Status: Acute Code(s): Z96.659 - PRESENCE OF UNSPECIFIED ARTIFICIAL KNEE JOINT SNOMED Code(s): 1071854838737 Comment: pain control, PT (3) HTN (hypertension) Current Visit: Yes Status: Acute Code(s): I10 - ESSENTIAL (PRIMARY) HYPERTENSION SNOMED Code(s): 48115408 Comment: holding lisinopril/hctz
--- NOTE | 2018-03-04 08:58 | PN ---
Progress Note - Progress Note Date of Service: 03/04/18 SOAP: Subjective: [Pt reports feeling better since CAT team was called last night for hypotension. Denies dizziness, lightheadedness, SOB. Complains of 7/10 pain L knee. Has been working with PT. Slept.] Objective: [A and O x 3, VSS. NAD Seated in chair L knee dressing changed - surgical incision benign. No erythema or drainage. Calf soft, NT, NV intact Vital Signs: Temp Pulse Resp BP Pulse Ox 98.2 F 93 18 137/64 96 03/04/18 07:23 03/04/18 07:23 03/04/18 07:58 03/04/18 07:23 03/04/18 07:23 Laboratory Results - last 24 hr 03/03/18 03/03/18 03/03/18 19:02 19:12 19:12 WBC RBC Hgb Hct MCV MCH MCHC RDW Plt Count MPV Neut % (Auto) Lymph % (Auto) [place] % (Auto) Eos % (Auto) Baso % (Auto) Absolute Neuts (auto) Absolute Lymphs (auto) Absolute Monos (auto) Absolute Eos (auto) Absolute Basos (auto) Absolute Nucleated RBC Nucleated RBC % INR (Anticoag Therapy) Sodium 131 L Potassium 3.5 Chloride 101 Carbon Dioxide 25 Anion Gap 5 BUN 25 H Creatinine 1.09 H Est GFR ( Amer) 60.8 Est GFR (Non-Af Amer) 47.3 BUN/Creatinine Ratio 22.9 H Glucose 170 H POC Glucose (mg/dL) 179 H Lactic Acid 1.4 Calcium 7.7 L Total Bilirubin 0.30 AST 11 L ALT 9 Alkaline Phosphatase 51 Troponin I 0.02 Total Protein 5.1 L Albumin 3.0 L Globulin 2.1 Albumin/Globulin Ratio 1.4 03/03/18 03/04/18 03/04/18 19:12 06:07 06:07 WBC 8.4 RBC 2.74 L Hgb 8.5 L 8.9 L Hct 25 L 26 L MCV 90 MCH 31 MCHC 34 RDW 14 Plt Count 191 172 MPV 7.3 L 7.0 L Neut % (Auto) 74.2 Lymph % (Auto) 14.7 L [place] % (Auto) 9.6 H Eos % (Auto) 0.6 Baso % (Auto) 0.9 Absolute Neuts (auto) 6.2 Absolute Lymphs (auto) 1.2 Absolute Monos (auto) 0.8 Absolute Eos (auto) 0.1 Absolute Basos (auto) 0.1 Absolute Nucleated RBC 0 Nucleated RBC % 0 INR (Anticoag Therapy) 1.16 H Sodium Potassium Chloride Carbon Dioxide Anion Gap BUN Creatinine Est GFR ( Amer) Est GFR (Non-Af Amer) BUN/Creatinine Ratio Glucose POC Glucose (mg/dL) Lactic Acid Calcium Total Bilirubin AST ALT Alkaline Phosphatase Troponin I Total Protein Albumin Globulin Albumin/Globulin Ratio ] Assessment: [88 yo s/p L TKA POD # 2 Dr. Sanders] Plan: [Con't PT/OT Pain management Lovenox and Coumadin for DVT prophylaxis 6 mg Coumadin tonight Likely d/c to [facility] tomorrow]
[2018-03-04] MEDS: Vitamin THERAPEUTIC TAB PO SCH (09:55)
[2018-03-04] MEDS: Docusate CAP* 100 MG PO SCH ×2 (09:55→20:03)
[2018-03-04] MEDS: Memantine TAB* 5 MG PO SCH ×2 (09:55→20:03)
[2018-03-04] MEDS: Magnesium Hydroxide LIQ* 30 ML UDC PO SCH ×2 (09:55→20:03)
[2018-03-04] MEDS: Acetaminophen TAB* 325 MG PO PRN ×2 (12:13→18:22)
[2018-03-04] MEDS: Enoxaparin(*) 30 MG/0.3 ML SYR SUBCUT SCH (12:18)
[2018-03-04] MEDS: traMADol TAB* 50 MG PO PRN (16:49)
[2018-03-04] MEDS ORDERED: Warfarin TAB(*) 6 MG PO ONE (17:00)
[2018-03-04] MEDS ORDERED: Ketorolac INJ* 15 MG/ML 1 ML VIAL IV PRN (19:59)
[2018-03-04] MEDS ORDERED: Ketorolac INJ* 15 MG/ML 1 ML VIAL ONE (20:00)
[2018-03-04] MEDS: Mirtazapine TAB* 15 MG PO SCH (20:03)
[2018-03-05] MEDS: traMADol TAB* 50 MG PO PRN ×3 (03:09→19:23)
[2018-03-05] MEDS: ALPRAZolam TAB* 0.25 MG PO PRN ×2 (03:59→11:32)
[2018-03-05] MEDS: Cyclobenzaprine TAB* 10 MG PO PRN ×3 (04:48→22:51)
[2018-03-05] MEDS: Levothyroxine TAB* 50 MCG TAB PO SCH (05:20)
[2018-03-05 06:02] LABS: Hematocrit 26 % (35-47); Hemoglobin 8.9 g/dl (12.0-16.0); Mean Platelet Volume 7.1 um3 (7.4-10.4); Platelet Count 173 10^3/ul (150-450)
[2018-03-05 06:08] LABS: INR 1.63 (0.77-1.02)
[2018-03-05] MEDS: Docusate CAP* 100 MG PO SCH ×2 (08:31→21:13)
[2018-03-05] MEDS: Memantine TAB* 5 MG PO SCH ×2 (08:31→21:15)
[2018-03-05] MEDS: Vitamin THERAPEUTIC TAB PO SCH (08:32)
[2018-03-05] MEDS: Magnesium Hydroxide LIQ* 30 ML UDC PO SCH (08:32)
[2018-03-05] MEDS: Acetaminophen TAB* 325 MG PO PRN ×2 (08:45→21:21)
--- NOTE | 2018-03-05 09:44 | PN ---
Progress Note - Progress Note Date of Service: 03/05/18 SOAP: Subjective: [Pt. reports 08/30 pain L knee. Tramadol and Toradol for pain. Has not had any Percocet over past days because 2 tabs made her nauseous. Denies CP, SOB, dizziness.] Objective: [A and O x 3, Appears mildly uncomfortable seated in bed. Daughter at bedside. L knee dressing C/D/I. Cryounit in place. Calf soft, NT Distal NV function intact. Vital Signs: Temp Pulse Resp BP Pulse Ox 97.3 F 99 18 129/66 100 03/05/18 03:12 03/05/18 03:20 03/05/18 09:22 03/05/18 03:20 03/05/18 03:20 Laboratory Results - last 24 hr 03/05/18 03/05/18 05:41 05:41 Hgb 8.9 L Hct 26 L Plt Count 173 MPV 7.1 L INR (Anticoag Therapy) 1.63 H ] Assessment: 88 yo female s/p L TKA POD #3[] Plan: [Will try 1 Percocet tab at a time to help manage pain PT/OT - WBAT LLE Coumadin 5 mg today To [facility] this afternoon if pain managed]
[2018-03-05] MEDS ORDERED: oxyCODONE/Acetamin 5/325 MG* TAB PO PRN (09:45)
[2018-03-05] MEDS: Enoxaparin(*) 30 MG/0.3 ML SYR SUBCUT SCH (11:32)
[2018-03-05] MEDS: Scopolamine 1.5 mg* PATCH TRANSDERM SCH (12:37)
[2018-03-05] MEDS ORDERED: Scopolamine PATCH Remove* 1 NOTE MISC PATCH OFF ONE (12:52)
[2018-03-05] MEDS ORDERED: Warfarin TAB(*) 5 MG PO ONE (17:00)
[2018-03-05] MEDS: Mirtazapine TAB* 15 MG PO SCH (21:16)
[2018-03-06] MEDS: traMADol TAB* 50 MG PO PRN ×2 (01:26→07:21)
[2018-03-06] MEDS: Levothyroxine TAB* 50 MCG TAB PO SCH (05:11)
[2018-03-06] MEDS: Acetaminophen TAB* 325 MG PO PRN (05:11)
[2018-03-06 05:35] LABS: Hematocrit 26 % (35-47); Hemoglobin 9.1 g/dl (12.0-16.0); Mean Platelet Volume 7.2 um3 (7.4-10.4); Platelet Count 219 10^3/ul (150-450)
[2018-03-06 05:41] LABS: INR 1.99 (0.77-1.02)
[2018-03-06] MEDS: Memantine TAB* 5 MG PO SCH (07:21)
[2018-03-06] MEDS: Vitamin THERAPEUTIC TAB PO SCH (07:21)
[2018-03-06] MEDS: Docusate CAP* 100 MG PO SCH (07:22)
[2018-03-06 08:52] VITALS: BP 173/72
[2018-03-06] MEDS ORDERED: oxyCODONE/Acetamin 5/325 MG* TAB PO PRN (09:12)
--- NOTE | 2018-03-06 10:22 | PN ---
Progress Note - Progress Note Date of Service: 03/06/18 SOAP: Subjective: Stable 88 y/o female s/p L TKA by Dr Henderson 03/02/2018. Patient with difficulty with pain medication- continues to have pain with PT with tramadol, percocet makes her very drowsy. no N/V. otherwise doing well, no complaints, concerned about D/C home. VSS afebrile overnight. Objective: GEneral- Well appearing, NAD AO, resting in bed comfortably MSK- L LE- surgical dressing removed, incision c/d/i, old minimal bloody drainage noted distal incision, neg homans, no induration, erythema. redressed. Vital Signs Temp 98.0 F 03/06/18 08:00 Pulse 105 03/06/18 08:00 Resp 16 03/06/18 09:22 BP 173/72 03/06/18 08:00 Pulse Ox 98 03/06/18 08:00 Intake & Output 03/05/18 03/06/18 03/06/18 18:59 06:59 18:59 Intake Total 350 800 325 Output Total 0 600 Balance 350 800 -275 Intake: Oral 350 800 325 Output: Urine 0 600 Other: Estimated Void Large Date of Last Bowel 03/05/18 03/06/18 Movement # Bowel Movements 1 1 Estimated Stool Amount Large Small # Voids 1 Assessment: Stable 88 y/o female s/p L TKA by Dr Henderson 03/02/2018. Plan: - D/C to [facility] today, no open subacute beds at [facility] - Continue PT/ OT - Pain meds changed to percocent 1/2 tablet for breakthrough pain, continue tramadol - lovenox, coumadin for DVT prophylaxis., INR 1.99 - post-op abx completed. - follow up with Dr henderson within 10-14 days post-op Acetaminophen (Tylenol Tab*) 650 mg PO Q4H PRN PRN Reason: PAIN OR TEMPERATURE Last Admin: 03/06/18 05:11 Dose: 650 mg Alprazolam (Xanax Tab*) 0.5 mg PO TID PRN PRN Reason: ANXIETY Last Admin: 03/05/18 11:32 Dose: 0.5 mg Bisacodyl (Dulcolax Supp*) 10 mg [place] DAILY PRN PRN Reason: constipation Cyclobenzaprine HCl (Flexeril Tab*) 5 mg PO TID PRN PRN Reason: SPASMS Last Admin: 03/05/18 22:51 Dose: 5 mg Diphenhydramine HCl (Benadryl Iv*) 12.5 mg IV Q6H PRN PRN Reason: PRURITIS Docusate Sodium (Colace Cap*) 100 mg PO BID [facility] Last Admin: 03/06/18 07:22 Dose: Not Given Enoxaparin Sodium (Lovenox(*)) 30 mg SUBCUT Q24H [facility] Last Admin: 03/05/18 11:32 Dose: 30 mg Dextrose/Sodium Chloride (D5w 1/2 Ns 1000 Ml Bag*) 1,000 mls @ 125 mls/hr IV PER RATE [facility] Last Admin: 03/04/18 00:30 Dose: 125 mls/hr Ketorolac Tromethamine (Toradol Inj*) 15 mg IV Q12H PRN PRN Reason: PAIN Last Admin: 03/05/18 08:38 Dose: 15 mg Levothyroxine Sodium (Synthroid Tab*) 50 mcg PO 0600 [facility] Last Admin: 03/06/18 05:11 Dose: 50 mcg Magnesium Hydroxide (Milk Of Magnesia Liq*) 30 ml PO Q6H PRN PRN Reason: constipation Memantine (Namenda Tab*) 10 mg PO BID [facility] Last Admin: 03/06/18 07:21 Dose: 10 mg Mirtazapine (Remeron Tab*) 15 mg PO BEDTIME [facility] Last Admin: 03/05/18 21:16 Dose: 15 mg Multivitamins (Theragran Tab*) 1 tab PO DAILY [facility] Last Admin: 03/06/18 07:21 Dose: 1 tab Ondansetron HCl (Zofran Inj*) 4 mg IV Q6H PRN PRN Reason: nausea Last Admin: 03/04/18 04:11 Dose: 4 mg Oxycodone/Acetaminophen (Percocet 5/325 Tab*) 1 tab PO Q4H PRN PRN Reason: PAIN Last Admin: 03/05/18 13:30 Dose: 1 tab Oxycodone/Acetaminophen (Percocet 5/325 Tab*) 0.5 tab PO Q4H PRN PRN Reason: PAIN Pharmacy Profile Note (Coumadin Daily Reminder*) 1 note FOLLOW UP 1700 [facility] Last Admin: 03/05/18 17:54 Dose: 1 note Scopolamine (Transderm-Scop 1.5 Mg Patch*) 1 patch TRANSDERM Q72H [facility] Last Admin: 03/05/18 12:37 Dose: Not Given Tramadol HCl (Ultram*) 100 mg PO Q6H PRN PRN Reason: PAIN Last Admin: 03/06/18 07:21 Dose: 100 mg
--- NOTE | 2018-03-06 12:32 | DS ---
Discharge Summary Date of Admission: 03/02/2018 Date of Discharge: 03/06/2018 Provider: Dr. Sanders. Principle Diagnosis: Left knee osteoarthritis s/p L total knee replacement Secondary Diagnoses: See H&P Principle procedure: Left total knee replacement, uncomplicated Consultations: Medicine, Physical therapy, Occupational therapy HPI: Refer to H&P Hospital Course: The patient was admitted on 03/02/2018 and underwent XXX. She tolerated the procedure well and there were no complications. The patient had XXX anesthesia and was quite comfortable in the immediate postoperative period. On POD#1 the patients H&H was 9.4/28. Dressing was CDI, was neurovascularly intact with good sensation distal to left knee. She could demonstrate dorsi and plantar flexion with good strength. Participation in physical and occupational therapy was begun. Pain management was controlled with tramadol and percocet. On POD#2 the urinary catheter was discontinued and the patient was able to void spontaneously. The dressing was changed and the wound was found to be benign with minimal drainage and erythema. Vital signs were stable and the patient was afebrile. POD#3 bowel and bladder had normalized and the patient was cleared by physical therapy for rehabilitation. She was accepted at [facility] on 03/06/2018. She will continue with the exercises learned with physical therapy and arrangements were made for visiting home physical therapy as well. At discharge the H&H was 9.1/26, vital signs were stable and the INR value was 1.99. The patient was discharged with a prescription for Coumadin 2 mg and her INR will be managed by [facility]. The INR will be monitored on Mondays and and the Coumadin dose adjusted accordingly. The patient will resume the home medications as indicated in the discharge instructions. [place] and/or sutures will be removed in 10-14 days in house or at Dr. Alcantara office. Acetaminophen (Tylenol Tab*) 650 mg PO Q4H PRN PRN Reason: PAIN OR TEMPERATURE Alprazolam (Xanax Tab*) 0.5 mg PO TID PRN PRN Reason: ANXIETY Bisacodyl (Dulcolax Supp*) 10 mg [place] DAILY PRN PRN Reason: constipation Cyclobenzaprine HCl (Flexeril Tab*) 5 mg PO TID PRN PRN Reason: SPASMS Docusate Sodium (Colace Cap*) 100 mg PO BID [facility] Last Admin: 03/06/18 07:22 Dose: Not Given Levothyroxine Sodium (Synthroid Tab*) 50 mcg PO 0600 [facility] Last Admin: 03/06/18 05:11 Dose: 50 mcg Memantine (Namenda Tab*) 10 mg PO BID [facility] Last Admin: 03/06/18 07:21 Dose: 10 mg Mirtazapine (Remeron Tab*) 15 mg PO BEDTIME [facility] Last Admin: 03/05/18 21:16 Dose: 15 mg Multivitamins (Theragran Tab*) 1 tab PO DAILY [facility] Last Admin: 03/06/18 07:21 Dose: 1 tab Oxycodone/Acetaminophen (Percocet 5/325 Tab*) 0.5-1 tab PO Q4H PRN PRN Reason: PAIN Last Admin: 03/05/18 13:30 Dose: 1 tab Tramadol HCl (Ultram*) 100 mg PO Q6H PRN PRN Reason: PAIN Last Admin: 03/06/18 07:21 Dose: 100 mg Condition: Stable Disposition: [facility] Follow up: Patient will follow up with Dr. Sanders in 10-14 days post-op at [facility] Orth[facility]ics Vital Signs Temp 98.0 F 03/06/18 08:00 Pulse 105 03/06/18 08:00 Resp 16 03/06/18 09:22 BP 173/72 03/06/18 08:00 Pulse Ox 98 03/06/18 08:00 Intake & Output 03/05/18 03/06/18 03/06/18 18:59 06:59 18:59 Intake Total 350 800 325 Output Total 0 600 Balance 350 800 -275 Intake: Oral 350 800 325 Output: Urine 0 600 Other: Estimated Void Large Date of Last Bowel 03/05/18 03/06/18 Movement # Bowel Movements 1 1 Estimated Stool Amount Large Small # Voids 1 Laboratory Results - last 24 hr 03/06/18 03/06/18 05:04 05:04 Hgb 9.1 L Hct 26 L Plt Count 219 MPV 7.2 L INR (Anticoag Therapy) 1.99 H
--- NOTE | 2018-03-07 01:41 | DS ---
DISCHARGE SUMMARY: DATE OF ADMISSION: 03/02/18 DATE OF DISCHARGE: 03/05/18 PROVIDER: Bridget Sanders MD * (DICTATED BY VANCE MORFIN) ADMITTING PHYSICIAN: Dr. Sanders. ADMITTING DIAGNOSES: Left knee osteoarthritis, mild cognitive impairment, hypertension, hypothyroidism, anxiety. DISCHARGE DIAGNOSES: Status post left total knee arthroplasty, mild cognitive impairment, hypertension, hypothyroidism, and anxiety. PROCEDURE: Left total knee arthroplasty. CONSULTANTS: Physical Therapy, Occupational Therapy, and Medicine. BRIEF HISTORY: Ms. Guerra is an 88-year-old female with severe degenerative osteoarthritis of her left knee. She failed conservative treatment measures and elected to undergo a left total knee arthroplasty on 03/02/[address] Sanders. HOSPITAL COURSE: Ms. Guerra was admitted to [facility] on 03/02/18. She underwent an uncomplicated left total knee arthroplasty. Postoperatively , she recovered on the short stay surgical unit. Her Holman catheter was removed on postoperative day 1 and she was able to urinate on her own. On postoperative day 2, she advanced to regular diet without difficulty. Overnight between postoperative days 1 and 2, the [facility] team was called for hypotension. This was managed with fluid replacement and she had no further difficulties. Some nausea was experienced by the patient after taking 2 tabs of Percocet for pain control. Pain medicine was switched to tramadol and dose of the tramadol was adjusted until adequate pain control was obtained. The patient was also able to tolerate one tab of Percocet at a time without experiencing nausea or vomiting. The patient was able to bear weight as tolerated on the left lower extremity and she advanced appropriately with physical therapy and occupational therapy. Her DVT prophylaxis was bridged with Lovenox and Coumadin. After the episode of hypotension, her vital signs and labs remained stable. By postoperative day #3, she was orthopedically and medically stable to be discharged to [facility]. PHYSICAL EXAMINATION: General: On examination, the patient is noted to be calm and cooperative, in no acute distress. She is alert and oriented x3. Vital signs on the day of discharge; temperature 99 degrees Fahrenheit, pulse rate 72, respiratory rate 18, O2 sat 100% on room air, blood pressure 129/66. Extremities: Examination of the left lower extremity demonstrates the dressing overlying the left knee which is clean, dry, and intact. Her calf is soft and nontender. Distally, she has +2 palpable DP pulse. 5/5 ankle dorsiflexion, plantar flexion, and strength. Sensation is intact to light touch. LABORATORY DATA: On the day of discharge, hemoglobin 8.9, hematocrit 26. INR 1.63. RADIOGRAPHS: Postoperative radiograph of the left knee demonstrate a left total knee arthroplasty with satisfactory prosthesis placement and no acute bony abnormalities. DISCHARGE MEDICATIONS: 1. Alprazolam ER 0.5 mg. 2. Hydrochlorothiazide 25 mg. 3. Liothyronine 5 mcg. 4. Lisinopril 20 mg. 5. Memantine/HCl 10 mg b.i.d. 6. Tramadol 100 mg q.6 hours p.r.n. pain. 7. Percocet 5/325 one tab p.o. q.4 hours p.r.n. pain. 8. Coumadin dosage as directed. 9. Colace 100 mg p.o. t.i.d. p.r.n. constipation. CONDITION ON DISCHARGE: Stable. DISCHARGE INSTRUCTIONS: Ms. Guerra is an 88-year-old female, postoperative day #3, status post left total knee arthroplasty which was uncomplicated. She is orthopedically and medically stable to be discharged to [facility]. She has stable vital signs and labs. She will take 5 mg of Coumadin today which is Tuesday and 4 mg tomorrow on Tuesday. Dosage will be adjusted as needed. She will remain weightbearing as tolerated on the left lower extremity. Tramadol and Percocet will be used for pain control and Colace for constipation. She will follow up with Dr. Sanders in approximately 2 weeks postop for incision check and suture removal. VANCE MORFIN [id number]/[facility] #: [id number] TAO
== END 2018-03-06 10:00 | DRG 470 ==
LOC: AA 09:27 → SSU 18:14 → PMRU 03-06 10:10
PROVIDERS: ADMIT Orthopaedic Surgery Adult Reconstructive Orthopaedic Surgery; ATTEND Orthopaedic Surgery Adult Reconstructive Orthopaedic Surgery
PROC: 0SRD0J9 Replacement of Left Knee Joint with Synthetic Substitute, Cemented, Open Approach (ICD-10-PCS; principal; 2018-03-02 12:00)
DX: M17.12 Unilateral primary osteoarthritis, left knee (principal); G31.84 Mild cognitive impairment of uncertain or unknown etiology; F41.9 Anxiety disorder, unspecified; I95.1 Orthostatic hypotension; I10 Essential (primary) hypertension; Z79.899 Other long term (current) drug therapy; Z88.5 Allergy status to narcotic agent; Z79.1 Long term (current) use of non-steroidal anti-inflammatories (NSAID); Z80.0 Family history of malignant neoplasm of digestive organs; Z83.6 Family history of other diseases of the respiratory system; Z87.891 Personal history of nicotine dependence; M25.762 Osteophyte, left knee
CPT/HCPCS: 36415; 80048; 80053; 83605; 84484; 85014; 85018; 85025; 85049; 85610; A9270-GY; C1776; G8978-GP-CK; G8978-GP-CL; G8979-GP-CI; G8987-GO-CJ; G8988-GO-CI; G8989-GO-CI; J0690; J1100; J1650; J1885; J2250; J2270; J2405; J2704; J3010

== ENCOUNTER 2018-03-06 07:29 | Inpatient (IN) | payer MEDICARE ==
[2018-03-06] MEDS ORDERED: Cyclobenzaprine TAB* 10 MG ONE (10:42)
[2018-03-06] MEDS ORDERED: Senna TAB PO PRN (11:25)
[2018-03-06] MEDS ORDERED: Magnesium Hydroxide LIQ* 30 ML UDC PO PRN (11:25)
[2018-03-06] MEDS ORDERED: oxyCODONE/Acetamin 5/325 MG* TAB PO PRN (11:41)
[2018-03-06] MEDS ORDERED: Cyclobenzaprine TAB* 10 MG PO PRN (11:49)
[2018-03-06] MEDS: ALPRAZolam TAB* 0.5 MG PO PRN ×2 (11:50→19:19)
[2018-03-06] MEDS ORDERED: ALPRAZolam TAB* 0.5 MG PO SCH (12:00)
[2018-03-06] MEDS: traMADol TAB* 50 MG PO PRN (15:31)
[2018-03-06] MEDS ORDERED: Warfarin TAB(*) 2.5 MG PO ONE (17:00)
[2018-03-06] MEDS: Acetaminophen TAB* 325 MG PO PRN (19:18)
[2018-03-06] MEDS: Docusate CAP* 100 MG PO SCH (20:53)
[2018-03-06] MEDS: Mirtazapine TAB* 15 MG PO SCH (20:53)
[2018-03-06] MEDS: Memantine TAB* 10 MG PO SCH (20:53)
--- NOTE | 2018-03-06 22:06 | HP ---
ADMISSION HISTORY AND PHYSICAL: DATE OF ADMISSION: 03/06/18 REASON FOR ADMISSION: Left total knee replacement. HISTORY OF ILLNESS: Candace Guerra is an 88-year-old female. She has a medical history significant for hypertension, hypothyroidism. The patient has had increasing difficulty with severe left knee pain. She was having difficulty walking more than half a block. She had tried antiinflammatories as well as steroid injections and physical therapy. Steroid injections were with minimal improvement. The patient saw Dr. Bridget Sanders. She had x-rays taken, which showed severe end-stage degenerative joint disease. It was decided the best course of action would be for her to have a left total knee replacement. The patient was admitted to [facility] on 03/02/18 and underwent a total knee replacement that day. Postoperatively, the patient had some difficulty with confusion from pain medications as well as difficulty maintaining her blood pressure when standing. This gradually improved. The patient was felt to have physical therapy and occupational therapy needs. She is now being admitted for inpatient rehab so that she might return to independent living. PAST MEDICAL HISTORY: Significant for: 1. Anxiety. 2. Hypothyroidism. 3. Hypertension. CURRENT MEDICATIONS: Include: 1. Xanax. 2. Hydrochlorothiazide. 3. Synthroid. 4. Cytomel. 5. Namenda. 6. Remeron. 7. Coumadin for DVT prophylaxis. 8. She is also on Ultram for pain control. ALLERGIES: The patient has allergies listed to TopiVert. SOCIAL HISTORY: She is a nonsmoker. She drinks several times a week. She lives with her in a 1-level house. Her cannot provide her any care and seems to require a bit of care himself. REVIEW OF SYSTEMS: The patient reports no current shortness of breath or chest pain. PHYSICAL EXAMINATION VITAL SIGNS: The patient's temperature is 97.9, blood pressure is 137/57, pulse is 91, respirations 20. HEENT: Her extraocular movements are intact. Tongue is midline. NECK: Supple. LUNGS: Sound clear to auscultation bilaterally. CARDIAC: Heart sounds are regular, S1 and S2 audible. ABDOMEN: Soft and nontender. EXTREMITIES: Her left leg has a wound, which is clean. Her left ankle has some minimal edema. Peripheral pulses are intact. NEUROLOGIC: She is awake, alert, oriented. Muscle strength is about 3/5 in the left leg secondary to pain, otherwise about 4+ to 5/5 throughout. FUNCTIONAL EXAM: The patient transfers with min assist. ASSESSMENT: Left total knee replacement. PLAN: Integrate her into a comprehensive and therapeutic rehab program with the following goals: 1. Physical Therapy will work with the patient. They are going to work on functional transfer training, ambulation training with a walker. 2. Occupational Therapy will see the patient, work on her activities of daily living including toileting and toilet transfers. 3. Coumadin for DVT prophylaxis. 4. Adequate analgesia. 5. Her bowels will be regulated. 6. Corporate Treasurer will be closely involved to make sure that any services and equipment the patient requires are in place prior to discharge. 7. Continue Cytomel and Synthroid for her hypothyroidism. 8. Continue Namenda for her mild cognitive decline. 9. Family training as appropriate. 10. Home with appropriate services. ESTIMATED LENGTH OF STAY: 10 days. [id number]/[facility] #: [id number] [facility]
[2018-03-07] MEDS: traMADol TAB* 50 MG PO PRN ×3 (05:25→21:15)
[2018-03-07] MEDS: Levothyroxine TAB* 50 MCG TAB PO SCH (05:25)
[2018-03-07] MEDS: ALPRAZolam TAB* 0.5 MG PO PRN ×2 (05:53→14:44)
[2018-03-07] MEDS: oxyCODONE/Acetamin 5/325 MG* TAB PO PRN ×2 (06:21→19:40)
[2018-03-07 06:47] LABS: INR 1.83 (0.77-1.02)
[2018-03-07] MEDS: Docusate CAP* 100 MG PO SCH ×2 (08:50→21:12)
[2018-03-07] MEDS: Hydrochlorothiazide TAB* 25 MG PO SCH (08:50)
[2018-03-07] MEDS: Liothyronine TAB* 5 MCG PO SCH (08:51)
[2018-03-07] MEDS: Lisinopril TAB* 10 MG PO SCH (08:51)
[2018-03-07] MEDS: Memantine TAB* 10 MG PO SCH ×2 (08:51→21:12)
[2018-03-07] MEDS: Acetaminophen TAB* 325 MG PO PRN (09:17)
--- NOTE | 2018-03-07 12:32 | PMRUTEAM ---
PMRU: Team Meeting Current Status: Nursing: Current Status Skin Deviations [left knee] Incision Skin Deviation Description [ brace and cryounit in place left knee] Physical Therapy: Current Status Bed Mobility Assistance Contact Guard Assist,Min Assist Transfer Moblility Assistance Supervision,Contact Guard Assist Transfer/Bed Mobility Rolling Walker Recommended Devices Transfer Mobility Comment pt. needs vc's for walker positioning and reminders to lift up feet. Ambulation Assistance Contact Guard Assist Ambulation Assistive Devices Rolling Walker Number of Feet Patient 40' Ambulated Ambulation Comment Antalgic step to type gait pattern. Stairs Assistance Not Tested Stairs Recommended Devices Two Rails Number of Stairs 5 Curb Not Tested Occupational Therapy: Current Status Upper Body Dressing Supervision Lower Body Dressing Max Asst Bathing Mod Assist Toileting Mod Assist Toilet Transfer Contact Guard Assist,Min Assist Eating Independent Rec Therapy: Current Status Summary of Assessment and New admission, visiting with family and completing Clinical Impression admission paperwork. Introduce RT services afternoon. Social Work: Current Status Discharge Plan return home with home care svs and family support Potential for Family Training TBD Anticipated Discharge Home Destination Anticipated Discharge d/c home alone Destination Comment Discharge With home care svs and family support Nutrition: Current Status Monitoring full nutrition assessment planned 03/16 per Nutrition protocol. Eating well w/regular diet thus far. Last BM 03/06. Initial goals as outlined below. Goals: Physical Therapy: Initial Goals Bed Mobility Assistance Independent Transfer Mobility Assistance Independent Transfer/Bed Mobility None Recommended Devices Ambulation Independent Ambulation Recommended Devices Rolling Walker Ambulation Distance 150 Stairs Assistance Independent Stair Recommended Devices Two Rails Number of Stairs 5 Physical Therapy: Updated Goals Bed Mobility Assistance Independent Transfer Mobility Assistance Independent Transfer/Bed Mobility Rolling Walker Recommended Devices Ambulation Assistance Independent Ambulation Assistive Devices Rolling Walker Ambulation Distance (ft) 150 Stairs Assistance Independent Stairs Recommended Devices Two Rails Number of Stairs 5 Occupational Therapy: Initial Goals Goals to be Completed in (Days 7-10 ) Upper Body Bathing Routine Modified Independent with Lower Body Bathing Routine Modified Independent with Upper Body Dressing Routine Independent Lower Body Dressing Routine Modified Independent with Toilet Hygeine and Clothing Modified Independent with Management Routine Toilet Transfer Routine Modified Independent with Tub Transfer Routine Modified Independent with Functional Transfers for ADL Modified Independent with Grooming Routine Modified Independent with Feeding Routine Independent Light Housekeeping Tasks Minimal Contact Assist Nutrition: Goals Intervention Goals 1. adequate po intake to support post-op healing and maintenance of lean body mass without add'l wt gain 2. maintain bowel regularity w/o constipation or diarrhea Social Work: Goals Discharge Plan return home with home care svs and family support Potential for Family Training TBD Anticipated Discharge Home Destination Anticipated Discharge d/c home alone Destination Comment Discharge With home care svs and family support Care Plan: Care Plan ADL's - Improve/Maintain Start: 03/06/18 15:42 Freq: DAILY Status: Active Target: Protocol: Activity Type Activity Date Activity User E-Sign Co-Sign Detail Recorded Client Recorded Date Recorded By Document 03/06/18 15:42 [id number] 03/06/18 15:43 [id number] 03/06/18 15:42 PMRU Outcome: ADL's/ADL Transfers Orders/Interventions Occupational Therapy Evaluation & Treatment Communication Tool in Patient Room Device Yes Address Deficits Secondary To: Left TKA Patient to receive OT 5x/wk for 60-120 Therex min/day Self Care Management Group Therapy UE/LE ADL's with Assist Yes: Román ADL Transfers with Assist Yes: Román Toileting: Transfers,Clothing Management Yes: Román ,Hygeine w/Assist Light Kitchen/Laundry w/Assist Yes: initial Benjamín Progression Toward Outcome/Goals Progressing Outcome/Goals Met Pt participated well in OT evaluation, limited at times 2* stiffness and pain, will benefit from skilled OT intervention to maximize independence and safety. Cardiovascular-Improve/Maintain Start: 03/07/18 00:42 Freq: DAILY Status: Active Target: Protocol: Activity Type Activity Date Activity User E-Sign Co-Sign Detail Recorded Client Recorded Date Recorded By Document 03/07/18 00:42 [id number] 03/07/18 00:43 [id number] 03/07/18 00:42 Outcome: Cardiovascular Current Cardiovascular Outcome/Goal Maintain/ achieve baseline HR, BP , Perfusion Improve HR within prescribed parameters Maintain/ improve perfusion Maintain/ achieve hemodynamic stability Progression Towards Outcome/Goal Progressing Genitourinary-Improve/Maintain Start: 03/07/18 00:42 Freq: DAILY Status: Active Target: Protocol: Activity Type Activity Date Activity User E-Sign Co-Sign Detail Recorded Client Recorded Date Recorded By Document 03/07/18 00:42 [id number] 03/07/18 00:43 [id number] 03/07/18 00:42 Outcome: Genitourinary Outcome/Goals Maintain/ Achieve Urinary Continence Maintain/ Achieve Adequate Urinary Output Progression Toward Outcome/Goals Progressing Infection-Improve/Maintain Start: 03/07/18 00:42 Freq: DAILY Status: Active Target: Protocol: Activity Type Activity Date Activity User E-Sign Co-Sign Detail Recorded Client Recorded Date Recorded By Document 03/07/18 00:42 [id number] 03/07/18 00:43 [id number] 03/07/18 00:42 Outcome: Infection Outcome/Goals Remain Free of Infection Understand Infection Prevention Strategies Progression Toward Outcome/Goals Progressing Metabolic Status-Improve/Maintain Start: 03/07/18 00:42 Freq: DAILY Status: Active Target: Protocol: Activity Type Activity Date Activity User E-Sign Co-Sign Detail Recorded Client Recorded Date Recorded By Document 03/07/18 00:42 [id number] 03/07/18 00:43 [id number] 03/07/18 00:42 Outcome: Metabolic Status Outcome/Goals Maintain/ Improve Metabolic Status Progression Toward Outcome/Goals Progressing Mobility- Improve/Maintain Start: 03/06/18 11:04 Freq: DAILY Status: Active Target: Protocol: Activity Type Activity Date Activity User E-Sign Co-Sign Detail Recorded Client Recorded Date Recorded By Document 03/06/18 11:04 [id number] 03/06/18 11:05 [id number] 03/06/18 11:04 PMRU Outcome: Mobility Physical Therapy Evaluation and Yes Treatment Activity OOB with Assistance Yes WBAT Yes Device Yes Assistance Yes Patient to be seen 5x/wk for 60-120 min/ Therex day for: Mobility Training Gait Training Balance Outcome/Goals Maintain/ Achieve Baseline Mobility Status Improve Mobility Status Demonstrates Proper Use of Assistive Devices Free from Complications of Immobility Bed Mobility Yes: Independent Transfers Yes: Modified independent with RW Gait x ft Yes: Modified independent 150 ' with RW Up/Down Stairs Yes: Independent 5 steps 2 railings With HEP Yes: Independent Medicine Note: Length of Stay: 10 days Anticipated Discharge Destination: Home Tentative Discharge Date: 03/17/18 Discharged to: Home
[2018-03-07] MEDS ORDERED: Warfarin TAB(*) 4 MG PO SCH (17:00)
--- NOTE | 2018-03-07 17:13 | PN ---
Progress Note Date of Service: 03/07/18 Note: BRUNO BENAVIDES was visited. Therapy notes read and reviewed. She was discussed in interdisciplinary team rounds. She fatigues easily. She is in a lot of pain but gets sleepy from Percocet Current Medications: Active Medications Generic Name Dose Route Start Last Admin Trade Name Freq PRN Reason Stop Dose Admin Acetaminophen 650 mg 03/06/18 11:25 03/07/18 09:17 Tylenol Tab* PO 650 mg Q6H PRN Administration FEVER/PAIN Alprazolam 0.5 mg 03/06/18 11:39 03/07/18 14:44 Xanax Tab* PO 0.5 mg TID PRN Administration ANXIETY Cyclobenzaprine HCl 5 mg 03/06/18 11:49 Flexeril Tab* PO TID PRN SPASMS Docusate Sodium 100 mg 03/06/18 21:00 03/07/18 08:50 Colace Cap* PO 100 mg BID JAMA Administration Hydrochlorothiazide 12.5 mg 03/07/18 09:00 03/07/18 08:50 Hydrodiuril Tab* PO 12.5 mg DAILY JAMA Administration Levothyroxine Sodium 50 mcg 03/07/18 06:00 03/07/18 05:25 Synthroid Tab* PO 50 mcg DAILY@0600 JAMA Administration Liothyronine Sodium 5 mcg 03/07/18 09:00 03/07/18 08:51 Cytomel Tab* PO 5 mcg DAILY JAMA Administration Lisinopril 10 mg 03/07/18 09:00 03/07/18 08:51 Prinivil Tab* PO 10 mg DAILY JAMA Administration Magnesium Hydroxide 30 ml 03/06/18 11:25 Milk Of Magnesia Liq* PO Q6H PRN CONSTIPATION Memantine 10 mg 03/06/18 21:00 03/07/18 08:51 Namenda Tab* PO 10 mg BID JAMA Administration Mirtazapine 15 mg 03/06/18 21:00 03/06/18 20:53 Remeron Tab* PO 15 mg BEDTIME JAMA Administration Oxycodone/Acetaminophen 0.5 tab 03/06/18 11:50 03/07/18 06:21 Percocet 5/325 Tab* PO 0.5 tab Q4H PRN Administration PAIN - MODERATE TO SEVERE Pharmacy Profile Note 1 note 03/06/18 17:00 03/06/18 18:47 Coumadin Daily Reminder* FOLLOW UP 1 note 1700 [facility] Administration Senna 2 tab 03/06/18 11:25 Senokot Tab* PO BEDTIME PRN CONSTIPATION Tramadol HCl 50 mg 03/06/18 11:42 03/07/18 13:24 Ultram* PO 50 mg Q6H PRN Administration PAIN - MODERATE TO SEVERE Tramadol HCl 100 mg 03/06/18 12:55 Ultram* PO Q6H PRN PAIN - SEVERE Warfarin Sodium 4 mg 03/07/18 17:00 Coumadin Tab(*) PO DAILY@1700 [facility] Protocol Vital Signs: Vital Signs Temp Pulse Resp BP Pulse Ox 99.2 F 104 16 156/72 95 03/07/18 05:01 03/07/18 05:01 03/07/18 14:44 03/07/18 05:01 03/07/18 05:01 Lab Results: Laboratory Results - last 24 hr 03/07/18 05:56 INR (Anticoag Therapy) 1.83 H Exam: LUNGS: Clear HEART: reg rhythm ABDOMEN: soft EXTREMITIES: Left knee clean NEUROLOGIC: Alert and oriented Assessment/Plan: 1. Left TKA: PT/OT 2. Hypothyroidism: Cytomel/Synthroid 3. HTN: lisinopril/HCTZ 4. DVT Prophylaxis: Coumadin 5. Analgesia: Percocet. Ultram. May need an NSAID? 6. Cognitive decline: Estebannda 03/07/18 17:13
[2018-03-07] MEDS: Mirtazapine TAB* 15 MG PO SCH (21:12)
[2018-03-08] MEDS: ALPRAZolam TAB* 0.5 MG PO PRN ×3 (02:44→17:57)
[2018-03-08] MEDS: traMADol TAB* 50 MG PO PRN ×3 (02:44→21:24)
[2018-03-08 05:43] LABS: ABS Basophils 0.1 10^3/ul (0-0.2); ABS Eosinophils 0.5 10^3/ul (0-0.6); ABS Lymphocytes 0.9 10^3/ul (1.0-4.8); ABS Monocytes 0.9 10^3/ul (0-0.8); ABS Neutrophils 4.7 10^3/ul (1.5-7.7); ABS Nucleated RBC 0 10^3/ul; Eosinophil % 6.6 % (0-6); Hematocrit 25 % (35-47); Hemoglobin 8.3 g/dl (12.0-16.0); Mean Corpuscular HGB Conc 33 g/dl (31-36); Mean Corpuscular Hemoglobin 30 pg (27-31); Mean Corpuscular Volume 90 fL (80-97); Mean Platelet Volume 6.3 um3 (7.4-10.4); Nucleated Red Blood Cells % 0; Platelet Count 245 10^3/ul (150-450); Red Blood Count 2.76 10^6/ul (4.0-5.4); Red Cell Distribution Width 14 % (10.5-15)
[2018-03-08] MEDS: Levothyroxine TAB* 50 MCG TAB PO SCH (05:43)
[2018-03-08 05:50] LABS: INR 1.48 (0.77-1.02)
[2018-03-08 06:06] LABS: EGFR Non-African American 61.3 (>60)
[2018-03-08] MEDS: Hydrochlorothiazide TAB* 25 MG PO SCH (08:52)
[2018-03-08] MEDS: Docusate CAP* 100 MG PO SCH ×2 (08:52→21:24)
[2018-03-08] MEDS: Lisinopril TAB* 10 MG PO SCH (08:54)
[2018-03-08] MEDS: Liothyronine TAB* 5 MCG PO SCH (08:54)
[2018-03-08] MEDS: Memantine TAB* 10 MG PO SCH ×2 (08:55→21:24)
[2018-03-08] MEDS: oxyCODONE/Acetamin 5/325 MG* TAB PO PRN ×3 (10:22→22:07)
[2018-03-08] MEDS: Warfarin TAB(*) 5 MG PO SCH (17:43)
--- NOTE | 2018-03-08 21:21 | PN ---
Progress Note Date of Service: 03/08/18 Note: BRUNO BENAVIDES was visited. Therapy notes read and reviewed. She has a lot of pain in her knee, and we are trying to balance analgesia with not oversedating her. Current Medications: Active Medications Generic Name Dose Route Start Last Admin Trade Name Freq PRN Reason Stop Dose Admin Acetaminophen 650 mg 03/06/18 11:25 03/07/18 09:17 Tylenol Tab* PO 650 mg Q6H PRN Administration FEVER/PAIN Alprazolam 0.5 mg 03/06/18 11:39 03/08/18 17:57 Xanax Tab* PO 0.5 mg TID PRN Administration ANXIETY Cyclobenzaprine HCl 5 mg 03/06/18 11:49 03/07/18 19:36 Flexeril Tab* PO 5 mg TID PRN Administration SPASMS Docusate Sodium 100 mg 03/06/18 21:00 03/08/18 08:52 Colace Cap* PO 100 mg BID JAMA Administration Hydrochlorothiazide 12.5 mg 03/07/18 09:00 03/08/18 08:52 Hydrodiuril Tab* PO 12.5 mg DAILY JAMA Administration Levothyroxine Sodium 50 mcg 03/07/18 06:00 03/08/18 05:43 Synthroid Tab* PO 50 mcg DAILY@0600 J[facility] Administration Liothyronine Sodium 5 mcg 03/07/18 09:00 03/08/18 08:54 Cytomel Tab* PO 5 mcg DAILY JAMA Administration Lisinopril 10 mg 03/07/18 09:00 03/08/18 08:54 Prinivil Tab* PO 10 mg DAILY JAMA Administration Magnesium Hydroxide 30 ml 03/06/18 11:25 Milk Of Magnesia Liq* PO Q6H PRN CONSTIPATION Memantine 10 mg 03/06/18 21:00 03/08/18 08:55 Namenda Tab* PO 10 mg BID JAMA Administration Mirtazapine 15 mg 03/06/18 21:00 03/07/18 21:12 Remeron Tab* PO 15 mg BEDTIME JAMA Administration Oxycodone/Acetaminophen 0.5 tab 03/06/18 11:50 03/08/18 17:58 Percocet 5/325 Tab* PO 0.5 tab Q4H PRN Administration PAIN - MODERATE TO SEVERE Pharmacy Profile Note 1 note 03/06/18 17:00 03/08/18 17:50 Coumadin Daily Reminder* FOLLOW UP 1 note 1700 [facility] Administration Senna 2 tab 03/06/18 11:25 Senokot Tab* PO BEDTIME PRN CONSTIPATION Tramadol HCl 50 mg 03/06/18 11:42 03/08/18 08:55 Ultram* PO 50 mg Q6H PRN Administration PAIN - MODERATE TO SEVERE Tramadol HCl 100 mg 03/06/18 12:55 03/08/18 02:44 Ultram* PO 100 mg Q6H PRN Administration PAIN - SEVERE Warfarin Sodium 5 mg 03/08/18 10:32 03/08/18 17:43 Coumadin Tab(*) PO 5 mg DAILY@1700 J[facility] Administration Protocol Vital Signs: Vital Signs Temp Pulse Resp BP Pulse Ox 98.5 F 95 18 149/69 100 03/08/18 15:56 03/08/18 15:56 03/08/18 19:50 03/08/18 15:56 03/08/18 19:50 Lab Results: Laboratory Results - last 24 hr 03/08/18 03/08/18 03/08/18 05:32 05:32 05:32 WBC 7.0 RBC 2.76 L Hgb 8.3 L Hct 25 L MCV 90 MCH 30 MCHC 33 RDW 14 Plt Count 245 MPV 6.3 L Neut % (Auto) 67.3 Lymph % (Auto) 13.0 L Sierra % (Auto) 12.1 H Eos % (Auto) 6.6 H Baso % (Auto) 1.0 Absolute Neuts (auto) 4.7 Absolute Lymphs (auto) 0.9 L Absolute Monos (auto) 0.9 H Absolute Eos (auto) 0.5 Absolute Basos (auto) 0.1 Absolute Nucleated RBC 0 Nucleated RBC % 0 INR (Anticoag Therapy) 1.48 H Sodium 134 L Potassium 4.0 Chloride 99 L Carbon Dioxide 31 Anion Gap 4 BUN 12 Creatinine 0.87 Est GFR ( Amer) 78.8 Est GFR (Non-Af Amer) 61.3 BUN/Creatinine Ratio 13.8 Glucose 98 Calcium 8.4 L Total Bilirubin 0.60 AST 38 ALT 34 Alkaline Phosphatase 91 Total Protein 5.3 L Albumin 2.7 L Globulin 2.6 Albumin/Globulin Ratio 1.0 Exam: LUNGS: Clear HEART: reg rhythm ABDOMEN: soft EXTREMITIES: Left knee clean NEUROLOGIC: Alert and oriented Assessment/Plan: 1. Left TKA: PT/OT 2. Hypothyroidism: Cytomel/Synthroid 3. HTN: lisinopril/HCTZ 4. DVT Prophylaxis: Coumadin 5. Analgesia: Percocet. Ultram. May need an NSAID? 6. Cognitive decline: Adriano 03/08/18 21:24
[2018-03-08] MEDS: Mirtazapine TAB* 15 MG PO SCH (21:24)
[2018-03-09] MEDS: oxyCODONE/Acetamin 5/325 MG* TAB PO PRN ×5 (02:00→21:59)
[2018-03-09] MEDS: ALPRAZolam TAB* 0.5 MG PO PRN ×2 (02:07→06:39)
[2018-03-09] MEDS: Acetaminophen TAB* 325 MG PO PRN (02:43)
[2018-03-09] MEDS: traMADol TAB* 50 MG PO PRN ×2 (04:52→18:11)
[2018-03-09] MEDS: Levothyroxine TAB* 50 MCG TAB PO SCH (04:53)
[2018-03-09] MEDS: Hydrochlorothiazide TAB* 25 MG PO SCH (09:06)
[2018-03-09] MEDS: Docusate CAP* 100 MG PO SCH ×2 (09:06→21:47)
[2018-03-09] MEDS: Lisinopril TAB* 10 MG PO SCH (09:07)
[2018-03-09] MEDS: Memantine TAB* 10 MG PO SCH ×2 (09:07→21:47)
[2018-03-09] MEDS: Liothyronine TAB* 5 MCG PO SCH (09:07)
[2018-03-09] MEDS: Warfarin TAB(*) 5 MG PO SCH (16:52)
--- NOTE | 2018-03-09 21:22 | PN ---
Progress Note Date of Service: 03/09/18 Note: BRUNO BENAVIDES was visited. Therapy notes read and reviewed. She continues to have a lot of pain. I will add Celebrex as a anti-inflammatory. Current Medications: Active Medications Generic Name Dose Route Start Last Admin Trade Name Freq PRN Reason Stop Dose Admin Acetaminophen 650 mg 03/06/18 11:25 03/09/18 02:43 Tylenol Tab* PO 650 mg Q6H PRN Administration FEVER/PAIN Alprazolam 0.5 mg 03/06/18 11:39 03/09/18 06:39 Xanax Tab* PO 0.5 mg TID PRN Administration ANXIETY Celecoxib 100 mg 03/10/18 09:00 Celebrex Cap* PO DAILY JAMA Cyclobenzaprine HCl 5 mg 03/06/18 11:49 03/07/18 19:36 Flexeril Tab* PO 5 mg TID PRN Administration SPASMS Docusate Sodium 100 mg 03/06/18 21:00 03/09/18 09:06 Colace Cap* PO 100 mg BID JAMA Administration Hydrochlorothiazide 12.5 mg 03/07/18 09:00 03/09/18 09:06 Hydrodiuril Tab* PO 12.5 mg DAILY JAMA Administration Levothyroxine Sodium 50 mcg 03/07/18 06:00 03/09/18 04:53 Synthroid Tab* PO 50 mcg DAILY@0600 J[facility] Administration Liothyronine Sodium 5 mcg 03/07/18 09:00 03/09/18 09:07 Cytomel Tab* PO 5 mcg DAILY JAMA Administration Lisinopril 10 mg 03/07/18 09:00 03/09/18 09:07 Prinivil Tab* PO 10 mg DAILY JAMA Administration Magnesium Hydroxide 30 ml 03/06/18 11:25 Milk Of Magnesia Liq* PO Q6H PRN CONSTIPATION Memantine 10 mg 03/06/18 21:00 03/09/18 09:07 Namenda Tab* PO 10 mg BID JAMA Administration Mirtazapine 15 mg 03/06/18 21:00 03/08/18 21:24 Remeron Tab* PO 15 mg BEDTIME JAMA Administration Oxycodone/Acetaminophen 0.5 tab 03/06/18 11:50 03/09/18 16:05 Percocet 5/325 Tab* PO 0.5 tab Q4H PRN Administration PAIN - MODERATE TO SEVERE Pharmacy Profile Note 1 note 03/06/18 17:00 03/09/18 16:52 Coumadin Daily Reminder* FOLLOW UP 1 note 1700 [facility] Administration Senna 2 tab 03/06/18 11:25 Senokot Tab* PO BEDTIME PRN CONSTIPATION Tramadol HCl 50 mg 03/06/18 11:42 03/08/18 21:24 Ultram* PO 50 mg Q6H PRN Administration PAIN - MODERATE TO SEVERE Tramadol HCl 100 mg 03/06/18 12:55 03/09/18 18:11 Ultram* PO 100 mg Q6H PRN Administration PAIN - SEVERE Warfarin Sodium 5 mg 03/08/18 10:32 03/09/18 16:52 Coumadin Tab(*) PO 5 mg DAILY@1700 JAMA Administration Protocol Vital Signs: Vital Signs Temp Pulse Resp BP Pulse Ox 98.2 F 103 18 140/67 100 03/09/18 16:27 03/09/18 16:27 03/09/18 19:08 03/09/18 16:27 03/09/18 16:27 Exam: LUNGS: Clear HEART: reg rhythm ABDOMEN: soft EXTREMITIES: Left knee clean NEUROLOGIC: Alert and oriented. Non-focal exam Assessment/Plan: 1. Left TKA: PT/OT 2. Hypothyroidism: Cytomel/Synthroid 3. HTN: lisinopril/HCTZ 4. DVT Prophylaxis: Coumadin 5. Analgesia: Percocet. Ultram. Will add an NSAID, Celebrex due to Coumadin 6. Cognitive decline: Namenda 03/09/18 21:23
[2018-03-09] MEDS: Mirtazapine TAB* 15 MG PO SCH (21:47)
[2018-03-10] MEDS: ALPRAZolam TAB* 0.5 MG PO PRN ×2 (01:51→19:29)
[2018-03-10] MEDS: oxyCODONE/Acetamin 5/325 MG* TAB PO PRN ×4 (01:52→22:20)
[2018-03-10] MEDS: Levothyroxine TAB* 50 MCG TAB PO SCH (05:22)
[2018-03-10] MEDS: traMADol TAB* 50 MG PO PRN ×2 (05:22→19:30)
[2018-03-10 06:38] LABS: INR 1.74 (0.77-1.02)
[2018-03-10] MEDS: Docusate CAP* 100 MG PO SCH ×2 (09:00→20:20)
[2018-03-10] MEDS: Lisinopril TAB* 10 MG PO SCH (09:02)
[2018-03-10] MEDS: Memantine TAB* 10 MG PO SCH ×2 (09:12→20:20)
[2018-03-10] MEDS: celeCOXIB CAP* 100 MG PO SCH (09:13)
[2018-03-10] MEDS: Hydrochlorothiazide TAB* 25 MG PO SCH (09:13)
[2018-03-10] MEDS: Liothyronine TAB* 5 MCG PO SCH (09:14)
--- NOTE | 2018-03-10 11:27 | PN ---
Progress Note Date of Service: 03/10/18 Note: BRUNO BENAVIDES was visited. Nursing and therapy notes read and reviewed. No chest pain, shortness of breath or abdominal pain. She has ongoing pain in the left knee and is frequently sedated from pain medications. Celebrex started this morning. Current Medications: Active Medications Generic Name Dose Route Start Last Admin Trade Name Freq PRN Reason Stop Dose Admin Acetaminophen 650 mg 03/06/18 11:25 03/09/18 02:43 Tylenol Tab* PO 650 mg Q6H PRN Administration FEVER/PAIN Alprazolam 0.5 mg 03/06/18 11:39 03/10/18 01:51 Xanax Tab* PO 0.5 mg TID PRN Administration ANXIETY Celecoxib 100 mg 03/10/18 09:00 03/10/18 09:13 Celebrex Cap* PO 100 mg DAILY JAMA Administration Docusate Sodium 100 mg 03/06/18 21:00 03/10/18 09:00 Colace Cap* PO 100 mg BID JAMA Administration Hydrochlorothiazide 12.5 mg 03/07/18 09:00 03/10/18 09:13 Hydrodiuril Tab* PO 12.5 mg DAILY JAMA Administration Levothyroxine Sodium 50 mcg 03/07/18 06:00 03/10/18 05:22 Synthroid Tab* PO 50 mcg DAILY@0600 JAMA Administration Liothyronine Sodium 5 mcg 03/07/18 09:00 03/10/18 09:14 Cytomel Tab* PO 5 mcg DAILY JAMA Administration Lisinopril 10 mg 03/07/18 09:00 03/10/18 09:02 Prinivil Tab* PO 10 mg DAILY JAMA Administration Magnesium Hydroxide 30 ml 03/06/18 11:25 Milk Of Magnesia Liq* PO Q6H PRN CONSTIPATION Memantine 10 mg 03/06/18 21:00 03/10/18 09:12 Namenda Tab* PO 10 mg BID JAMA Administration Mirtazapine 15 mg 03/06/18 21:00 03/09/18 21:47 Remeron Tab* PO 15 mg BEDTIME JAMA Administration Oxycodone/Acetaminophen 0.5 tab 03/06/18 11:50 03/10/18 09:00 Percocet 5/325 Tab* PO 0.5 tab Q4H PRN Administration PAIN - MODERATE TO SEVERE Pharmacy Profile Note 1 note 03/06/18 17:00 03/09/18 16:52 Coumadin Daily Reminder* FOLLOW UP 1 note 1700 [facility] Administration Senna 2 tab 03/06/18 11:25 Senokot Tab* PO BEDTIME PRN CONSTIPATION Tramadol HCl 50 mg 03/06/18 11:42 03/08/18 21:24 Ultram* PO 50 mg Q6H PRN Administration PAIN - MODERATE TO SEVERE Tramadol HCl 100 mg 03/06/18 12:55 03/10/18 05:22 Ultram* PO 100 mg Q6H PRN Administration PAIN - SEVERE Warfarin Sodium 5 mg 03/08/18 10:32 03/09/18 16:52 Coumadin Tab(*) PO 5 mg DAILY@1700 JAMA Administration Protocol Vital Signs: Vital Signs Temp Pulse Resp BP Pulse Ox 99.7 F 74 16 152/83 97 03/10/18 05:23 03/10/18 05:23 03/10/18 09:00 03/10/18 05:23 03/10/18 05:23 Lab Results: Laboratory Results - last 24 hr 03/10/18 05:55 INR (Anticoag Therapy) 1.74 H Exam: GEN: No acute distress. Alert but moaning about pain in her knee. She is able to repeat to me information I have relayed to her, but needs encouragement to stay directed as she seems distracted by pain. Her son is in the room also. LUNGS: Clear to auscultation bilaterally HEART: regular rate and rhythm ABDOMEN: + bowel sounds, soft, non-tender and non-distended EXTREMITIES: Left knee cryo cuff is on. Edema in bilateral lower extremities left greater than right. NEUROLOGIC: Demonstrates 5/5 bilateral motor at ankles and feet with normal sensation. FUNCTIONAL EXAM: Observed later walking in hallway with PT and nurse without any moaning and SBA. Assessment/Plan: 88yo woman s/p left total knee replacement. 1. Left TKA: PT/OT. f/u with Dr. Sanders. 2. Hypothyroidism: Cytomel/Synthroid 3. HTN: lisinopril/HCTZ 4. DVT Prophylaxis: Coumadin. Check INR Sat/Sun 5. Analgesia: 1/2 Percocet at a time. Ultram prn. Stated low dose 100mg Celebrex qday due to Coumadin. cryocuff. 6. Leg edema: check venous doppler to r/o dvt. 7. Cognitive decline: Namenda 8. Advanced directives: DNR 9. Estimated LOS: expect d/c 03/17/18. 03/10/18 11:35
--- NOTE | 2018-03-10 11:29 | RAD ---
HISTORY: Left leg edema following knee replacement COMPARISONS: None relevant TECHNIQUE: Multiple transverse and longitudinal ultrasound images were obtained of the left lower extremity from the level of the common femoral vein inferiorly through to the infrapopliteal veins using grayscale, color Doppler, and spectral Doppler imaging with and without compression and with augmentation. Comparison images were obtained of the contralateral common femoral vein. FINDINGS: VEINS: The venous system of the left lower extremity is compressible throughout its course, with normal flow on color Doppler imaging and normal response to augmentation on spectral Doppler imaging. SOFT TISSUES: Unremarkable. OTHER FINDINGS: None. IMPRESSION: NO LEFT LOWER EXTREMITY DEEP VEIN THROMBOSIS
[2018-03-10] MEDS: Acetaminophen TAB* 325 MG PO PRN (12:53)
[2018-03-10] MEDS: Warfarin TAB(*) 5 MG PO SCH (17:37)
[2018-03-10] MEDS: Mirtazapine TAB* 15 MG PO SCH (20:20)
[2018-03-11] MEDS: oxyCODONE/Acetamin 5/325 MG* TAB PO PRN ×2 (03:08→23:26)
[2018-03-11] MEDS: ALPRAZolam TAB* 0.5 MG PO PRN ×2 (03:16→22:59)
[2018-03-11 06:00] LABS: ABS Basophils 0.1 10^3/ul (0-0.2); ABS Eosinophils 0.5 10^3/ul (0-0.6); ABS Lymphocytes 0.7 10^3/ul (1.0-4.8); ABS Monocytes 0.8 10^3/ul (0-0.8); ABS Neutrophils 4.6 10^3/ul (1.5-7.7); ABS Nucleated RBC 0 10^3/ul; Eosinophil % 8.2 % (0-6); Hematocrit 25 % (35-47); Hemoglobin 8.4 g/dl (12.0-16.0); Lymphocyte % 10.6 % (25-47); Mean Corpuscular HGB Conc 34 g/dl (31-36); Mean Corpuscular Hemoglobin 30 pg (27-31); Mean Corpuscular Volume 90 fL (80-97); Mean Platelet Volume 6.4 um3 (7.4-10.4); Nucleated Red Blood Cells % 0; Platelet Count 345 10^3/ul (150-450); Red Blood Count 2.78 10^6/ul (4.0-5.4); Red Cell Distribution Width 14 % (10.5-15); White Blood Count 6.6 10^3/ul (3.5-10.8)
[2018-03-11 06:07] LABS: INR 1.67 (0.77-1.02)
[2018-03-11 06:18] LABS: EGFR Non-African American 54.1 (>60)
[2018-03-11] MEDS: Levothyroxine TAB* 50 MCG TAB PO SCH (06:35)
[2018-03-11] MEDS: Memantine TAB* 10 MG PO SCH ×2 (09:00→20:58)
[2018-03-11] MEDS: Liothyronine TAB* 5 MCG PO SCH (09:00)
[2018-03-11] MEDS: Lisinopril TAB* 10 MG PO SCH (09:00)
[2018-03-11] MEDS: celeCOXIB CAP* 100 MG PO SCH (09:00)
[2018-03-11] MEDS: traMADol TAB* 50 MG PO PRN ×2 (09:00→22:22)
[2018-03-11] MEDS: Docusate CAP* 100 MG PO SCH ×2 (09:01→20:58)
[2018-03-11] MEDS: Hydrochlorothiazide TAB* 25 MG PO SCH (09:01)
--- NOTE | 2018-03-11 10:42 | PN ---
Progress Note Date of Service: 03/11/18 Note: BRUNO BENAVIDES was visited. Nursing and therapy notes read and reviewed. She did well yesterday afternoon in therapy after a rough painful morning. She worries about going home this week, but does not want to go to subacute rehab. No chest pain, shortness of breath or abdominal pain. Current Medications: Active Medications Generic Name Dose Route Start Last Admin Trade Name Freq PRN Reason Stop Dose Admin Acetaminophen 650 mg 03/06/18 11:25 03/10/18 12:53 Tylenol Tab* PO 650 mg Q6H PRN Administration FEVER/PAIN Alprazolam 0.5 mg 03/06/18 11:39 03/11/18 03:16 Xanax Tab* PO 0.5 mg TID PRN Administration ANXIETY Celecoxib 100 mg 03/10/18 09:00 03/11/18 09:00 Celebrex Cap* PO 100 mg DAILY JAMA Administration Docusate Sodium 100 mg 03/06/18 21:00 03/11/18 09:01 Colace Cap* PO 100 mg BID JAMA Administration Hydrochlorothiazide 12.5 mg 03/07/18 09:00 03/11/18 09:01 Hydrodiuril Tab* PO 12.5 mg DAILY JAMA Administration Levothyroxine Sodium 50 mcg 03/07/18 06:00 03/11/18 06:35 Synthroid Tab* PO 50 mcg DAILY@0600 JAMA Administration Liothyronine Sodium 5 mcg 03/07/18 09:00 03/11/18 09:00 Cytomel Tab* PO 5 mcg DAILY JAMA Administration Lisinopril 10 mg 03/07/18 09:00 03/11/18 09:00 Prinivil Tab* PO 10 mg DAILY JAMA Administration Magnesium Hydroxide 30 ml 03/06/18 11:25 Milk Of Magnesia Liq* PO Q6H PRN CONSTIPATION Memantine 10 mg 03/06/18 21:00 03/11/18 09:00 Namenda Tab* PO 10 mg BID JAMA Administration Mirtazapine 15 mg 03/06/18 21:00 03/10/18 20:20 Remeron Tab* PO 15 mg BEDTIME JAMA Administration Oxycodone/Acetaminophen 0.5 tab 03/06/18 11:50 03/11/18 03:08 Percocet 5/325 Tab* PO 0.5 tab Q4H PRN Administration PAIN - MODERATE TO SEVERE Pharmacy Profile Note 1 note 03/06/18 17:00 03/10/18 17:37 Coumadin Daily Reminder* FOLLOW UP 1 note 1700 [facility] Administration Senna 2 tab 03/06/18 11:25 Senokot Tab* PO BEDTIME PRN CONSTIPATION Tramadol HCl 50 mg 03/06/18 11:42 03/10/18 19:30 Ultram* PO 50 mg Q6H PRN Administration PAIN - MODERATE TO SEVERE Tramadol HCl 100 mg 03/06/18 12:55 03/11/18 09:00 Ultram* PO 100 mg Q6H PRN Administration PAIN - SEVERE Warfarin Sodium 6 mg 03/11/18 17:00 Coumadin Tab(*) PO DAILY@1700 [facility] Protocol Vital Signs: Vital Signs Temp Pulse Resp BP Pulse Ox 98.8 F 98 16 182/91 94 03/11/18 06:35 03/11/18 06:35 03/11/18 09:00 03/11/18 06:35 03/11/18 06:35 Lab Results: Laboratory Results - last 24 hr 03/11/18 03/11/18 03/11/18 05:43 05:43 05:43 WBC 6.6 RBC 2.78 L Hgb 8.4 L Hct 25 L MCV 90 MCH 30 MCHC 34 RDW 14 Plt Count 345 MPV 6.4 L Neut % (Auto) 68.8 Lymph % (Auto) 10.6 L [place] % (Auto) 11.6 H Eos % (Auto) 8.2 H Baso % (Auto) 0.8 Absolute Neuts (auto) 4.6 Absolute Lymphs (auto) 0.7 L Absolute Monos (auto) 0.8 Absolute Eos (auto) 0.5 Absolute Basos (auto) 0.1 Absolute Nucleated RBC 0 Nucleated RBC % 0 INR (Anticoag Therapy) 1.67 H Sodium 134 L Potassium 3.8 Chloride 99 L Carbon Dioxide 29 Anion Gap 6 BUN 17 Creatinine 0.97 H Est GFR ( Amer) 69.5 Est GFR (Non-Af Amer) 54.1 BUN/Creatinine Ratio 17.5 Glucose 101 H Calcium 8.6 Exam: GEN: No acute distress. Alert and appropriate. LUNGS: Clear to auscultation bilaterally HEART: regular rate and rhythm ABDOMEN: + bowel sounds, soft, non-tender and non-distended EXTREMITIES: Left knee cryo cuff is on. Edema in bilateral lower extremities left greater than right. NEUROLOGIC: Demonstrates 5/5 bilateral motor at ankles and feet with normal sensation. Left lower extremity venous doppler 03/10/18 was normal. Assessment/Plan: 88yo woman s/p left total knee replacement. 1. Left TKA: PT/OT. f/u with Dr. Sanders. 2. Hypothyroidism: Cytomel/Synthroid 3. HTN: lisinopril/HCTZ. I will have staff recheck BP now that she has received her medication. 4. DVT Prophylaxis: Increases coumadin to 6mg. Check INR Sun. Left lower extremity venous doppler 03/10/18 was normal. 5. Analgesia: 1/2 Percocet at a time. Ultram prn. Stated low dose 100mg Celebrex qday on 03/10/18 due to Coumadin. cryocuff. follow renal function and H/ H. 6. Cognitive decline: Namenda 7. Acute post-operative anemia: stable. follow H/H. 8. Advanced directives: DNR 9. Estimated LOS: expect d/c 03/17/18. 03/11/18 10:39
[2018-03-11] MEDS: Acetaminophen TAB* 325 MG PO PRN ×2 (10:51→16:19)
[2018-03-11] MEDS: Warfarin TAB(*) 6 MG PO SCH (16:26)
[2018-03-11] MEDS: Mirtazapine TAB* 15 MG PO SCH (20:58)
[2018-03-12] MEDS: traMADol TAB* 50 MG PO PRN ×2 (04:35→21:50)
[2018-03-12] MEDS: Levothyroxine TAB* 50 MCG TAB PO SCH (05:25)
[2018-03-12 05:52] LABS: INR 1.71 (0.77-1.02)
[2018-03-12] MEDS: celeCOXIB CAP* 100 MG PO SCH (07:42)
[2018-03-12] MEDS: Hydrochlorothiazide TAB* 25 MG PO SCH (07:42)
[2018-03-12] MEDS: Liothyronine TAB* 5 MCG PO SCH (07:42)
[2018-03-12] MEDS: Lisinopril TAB* 10 MG PO SCH (07:42)
[2018-03-12] MEDS: Acetaminophen TAB* 325 MG PO PRN (07:43)
[2018-03-12] MEDS: Docusate CAP* 100 MG PO SCH ×2 (07:43→20:29)
[2018-03-12] MEDS: Memantine TAB* 10 MG PO SCH ×2 (07:43→20:29)
--- NOTE | 2018-03-12 09:42 | PN ---
Progress Note Date of Service: 03/12/18 Note: BRUNO BENAVIDES was visited. Nursing notes read and reviewed. No chest pain, shortness of breath or abdominal pain. Yesterday afternoon she stated that she felt "drugged" but still had pain. She was upset last night that she had pain and thought she should be able to take more pain medications and that Dr. Sanders would not want her in this severe pain. She does feel that tylenol is helpful when she gets it and yesterday thought she might just manage with it until last night when she needed something more. Current Medications: Active Medications Generic Name Dose Route Start Last Admin Trade Name Freq PRN Reason Stop Dose Admin Acetaminophen 650 mg 03/06/18 11:25 03/12/18 07:43 Tylenol Tab* PO 650 mg Q6H PRN Administration FEVER/PAIN Alprazolam 0.5 mg 03/06/18 11:39 03/11/18 22:59 Xanax Tab* PO 0.5 mg TID PRN Administration ANXIETY Celecoxib 100 mg 03/10/18 09:00 03/12/18 07:42 Celebrex Cap* PO 100 mg DAILY JAMA Administration Docusate Sodium 100 mg 03/06/18 21:00 03/12/18 07:43 Colace Cap* PO 100 mg BID JAMA Administration Hydrochlorothiazide 12.5 mg 03/07/18 09:00 03/12/18 07:42 Hydrodiuril Tab* PO 12.5 mg DAILY JAMA Administration Levothyroxine Sodium 50 mcg 03/07/18 06:00 03/12/18 05:25 Synthroid Tab* PO 50 mcg DAILY@0600 JAMA Administration Liothyronine Sodium 5 mcg 03/07/18 09:00 03/12/18 07:42 Cytomel Tab* PO 5 mcg DAILY JAMA Administration Lisinopril 10 mg 03/07/18 09:00 03/12/18 07:42 Prinivil Tab* PO 10 mg DAILY JAMA Administration Magnesium Hydroxide 30 ml 03/06/18 11:25 Milk Of Magnesia Liq* PO Q6H PRN CONSTIPATION Memantine 10 mg 03/06/18 21:00 03/12/18 07:43 Namenda Tab* PO 10 mg BID JAMA Administration Mirtazapine 15 mg 03/06/18 21:00 03/11/18 20:58 Remeron Tab* PO 15 mg BEDTIME JAMA Administration Oxycodone/Acetaminophen 0.5 tab 03/06/18 11:50 03/11/18 23:26 Percocet 5/325 Tab* PO 0.5 tab Q4H PRN Administration PAIN - MODERATE TO SEVERE Pharmacy Profile Note 1 note 03/06/18 17:00 03/11/18 16:27 Coumadin Daily Reminder* FOLLOW UP 1 note 1700 [facility] Administration Senna 2 tab 03/06/18 11:25 Senokot Tab* PO BEDTIME PRN CONSTIPATION Tramadol HCl 50 mg 03/06/18 11:42 03/10/18 19:30 Ultram* PO 50 mg Q6H PRN Administration PAIN - MODERATE TO SEVERE Tramadol HCl 100 mg 03/06/18 12:55 03/12/18 04:35 Ultram* PO 100 mg Q6H PRN Administration PAIN - SEVERE Warfarin Sodium 6 mg 03/11/18 17:00 03/11/18 16:26 Coumadin Tab(*) PO 6 mg DAILY@1700 JAMA Administration Protocol Vital Signs: Vital Signs 03/11/18 03/11/18 03/11/18 10:54 10:55 11:00 Temperature Pulse Rate 96 Respiratory 16 Rate Blood Pressure 91/79 115/72 (mmHg) O2 Sat by Pulse Oximetry 03/11/18 03/11/18 03/11/18 16:40 20:00 22:22 Temperature 98.1 F Pulse Rate 92 Respiratory 20 20 20 Rate Blood Pressure 130/62 (mmHg) O2 Sat by Pulse 100 Oximetry 03/11/18 03/11/18 03/12/18 22:59 23:26 00:26 Temperature Pulse Rate Respiratory 22 22 20 Rate Blood Pressure (mmHg) O2 Sat by Pulse Oximetry 03/12/18 03/12/18 03/12/18 01:01 01:26 04:35 Temperature Pulse Rate Respiratory 18 20 22 Rate Blood Pressure (mmHg) O2 Sat by Pulse Oximetry 03/12/18 03/12/18 05:46 08:00 Temperature 97.6 F Pulse Rate 85 Respiratory 18 18 Rate Blood Pressure 160/88 (mmHg) O2 Sat by Pulse 99 Oximetry Lab Results: Laboratory Results - last 24 hr 03/12/18 05:19 INR (Anticoag Therapy) 1.71 H Exam: GEN: No acute distress. Alert and appropriate. LUNGS: Clear to auscultation bilaterally HEART: regular rate and rhythm ABDOMEN: + bowel sounds, soft, non-tender and non-distended EXTREMITIES: Left knee cryo cuff is on. Edema in bilateral lower extremities left greater than right. NEUROLOGIC: Demonstrates 5/5 bilateral motor at ankles and feet with normal sensation. Left lower extremity venous doppler 03/10/18 was normal. Assessment/Plan: 88yo woman s/p left total knee replacement. 1. Left TKA: PT/OT. f/u with Dr. Sanders. 2. Hypothyroidism: Cytomel/Synthroid 3. HTN: lisinopril/HCTZ. BP higher in AM, but better later in the day when sitting up. 4. DVT Prophylaxis: Increased coumadin to 6mg 03/11. INR tomorrow. Left lower extremity venous doppler 03/10/18 was normal. 5. Analgesia: She would prefer smaller doses more frequently. I d/w her that I don't think she is allowing enough time for pain medication to work. She often gets 1 and within the hour is asking for another and then is groggy. I d/w her scheduling tylenol, which she agrees and then will change percocet to oxycodone and change tramadol to 50mg q3h prn. Continue low dose 100mg Celebrex qday due to Coumadin. cryocuff. follow renal function and H/H. 6. Cognitive decline: Namenda 7. Acute post-operative anemia: stable. follow H/H. 8. Advanced directives: DNR 9. Estimated LOS: expect d/c 03/17/18. 03/12/18 09:42
[2018-03-12] MEDS: Acetaminophen TAB* 325 MG PO SCH ×4 (11:47→20:27)
[2018-03-12] MEDS: Warfarin TAB(*) 6 MG PO SCH (17:24)
[2018-03-12] MEDS: oxyCODONE TAB* 5 MG TAB PO PRN (18:06)
[2018-03-12] MEDS: ALPRAZolam TAB* 0.5 MG PO PRN (20:29)
[2018-03-12] MEDS: Mirtazapine TAB* 15 MG PO SCH (21:45)
[2018-03-13] MEDS: oxyCODONE TAB* 5 MG TAB PO PRN ×3 (01:11→18:46)
[2018-03-13] MEDS: traMADol TAB* 50 MG PO PRN ×2 (02:02→21:43)
[2018-03-13] MEDS: Levothyroxine TAB* 50 MCG TAB PO SCH (05:49)
[2018-03-13 06:18] LABS: Hematocrit 28 % (35-47); Hemoglobin 9.4 g/dl (12.0-16.0); Mean Corpuscular HGB Conc 34 g/dl (31-36); Mean Corpuscular Hemoglobin 30 pg (27-31); Mean Corpuscular Volume 90 fL (80-97); Mean Platelet Volume 6.3 um3 (7.4-10.4); Platelet Count 396 10^3/ul (150-450); Red Blood Count 3.12 10^6/ul (4.0-5.4); Red Cell Distribution Width 14 % (10.5-15); White Blood Count 7.4 10^3/ul (3.5-10.8)
[2018-03-13 06:26] LABS: INR 1.91 (0.77-1.02)
[2018-03-13 06:36] LABS: EGFR Non-African American 53.4 (>60)
[2018-03-13 07:12] LABS: ABS Basophils 0.1 10^3/ul (0-0.2); ABS Eosinophils 0.7 10^3/ul (0-0.6); ABS Lymphocytes 1.2 10^3/ul (1.0-4.8); ABS Monocytes 0.7 10^3/ul (0-0.8); ABS Neutrophils 4.8 10^3/ul (1.5-7.7)
[2018-03-13 07:15] LABS: Monocytes % 11 % (0-7)
[2018-03-13] MEDS: Acetaminophen TAB* 325 MG PO SCH ×4 (08:08→21:39)
[2018-03-13] MEDS: Hydrochlorothiazide TAB* 25 MG PO SCH (08:09)
[2018-03-13] MEDS: Docusate CAP* 100 MG PO SCH ×2 (08:09→22:21)
[2018-03-13] MEDS: celeCOXIB CAP* 100 MG PO SCH (08:09)
[2018-03-13] MEDS: Liothyronine TAB* 5 MCG PO SCH (08:10)
[2018-03-13] MEDS: Memantine TAB* 10 MG PO SCH ×2 (08:11→22:21)
[2018-03-13] MEDS: Lisinopril TAB* 10 MG PO SCH (08:11)
[2018-03-13] MEDS: ALPRAZolam TAB* 0.5 MG PO PRN ×2 (16:28→21:43)
[2018-03-13] MEDS: Warfarin TAB(*) 6 MG PO SCH (18:48)
--- NOTE | 2018-03-13 20:00 | PN ---
Progress Note Date of Service: 03/13/18 Note: BRUNO BENAVIDES was visited. Therapy notes read and reviewed. She is worried she will not be ready to leave by Tuesday. Pain still an issue. Current Medications: Active Medications Generic Name Dose Route Start Last Admin Trade Name Freq PRN Reason Stop Dose Admin Acetaminophen 650 mg 03/12/18 12:00 03/13/18 16:27 Tylenol Tab* PO 650 mg QID JAMA Administration Alprazolam 0.5 mg 03/06/18 11:39 03/13/18 16:28 Xanax Tab* PO 0.5 mg TID PRN Administration ANXIETY Celecoxib 100 mg 03/10/18 09:00 03/13/18 08:09 Celebrex Cap* PO 100 mg DAILY JAMA Administration Docusate Sodium 100 mg 03/06/18 21:00 03/13/18 08:09 Colace Cap* PO 100 mg BID JAMA Administration Hydrochlorothiazide 12.5 mg 03/07/18 09:00 03/13/18 08:09 Hydrodiuril Tab* PO 12.5 mg DAILY JAMA Administration Levothyroxine Sodium 50 mcg 03/07/18 06:00 03/13/18 05:49 Synthroid Tab* PO 50 mcg DAILY@0600 JAMA Administration Liothyronine Sodium 5 mcg 03/07/18 09:00 03/13/18 08:10 Cytomel Tab* PO 5 mcg DAILY JAMA Administration Lisinopril 10 mg 03/07/18 09:00 03/13/18 08:11 Prinivil Tab* PO 10 mg DAILY JAMA Administration Magnesium Hydroxide 30 ml 03/06/18 11:25 Milk Of Magnesia Liq* PO Q6H PRN CONSTIPATION Memantine 10 mg 03/06/18 21:00 03/13/18 08:11 Namenda Tab* PO 10 mg BID JAMA Administration Mirtazapine 15 mg 03/06/18 21:00 03/12/18 21:45 Remeron Tab* PO 15 mg BEDTIME JAMA Administration Oxycodone HCl 2.5 mg 03/12/18 09:49 03/13/18 18:46 Roxycodone Tab* PO 2.5 mg Q6H PRN Administration severe pain. do tramadol first Pharmacy Profile Note 1 note 03/06/18 17:00 03/13/18 18:45 Coumadin Daily Reminder* FOLLOW UP 1 note 1700 [facility] Administration Senna 2 tab 03/06/18 11:25 Senokot Tab* PO BEDTIME PRN CONSTIPATION Tramadol HCl 50 mg 03/12/18 09:49 03/13/18 02:02 Ultram* PO 50 mg Q3H PRN Administration PAIN - MODERATE TO SEVERE Warfarin Sodium 6 mg 03/11/18 17:00 03/13/18 18:48 Coumadin Tab(*) PO 6 mg DAILY@1700 [facility] Administration Protocol Vital Signs: Vital Signs Temp Pulse Resp BP Pulse Ox 98.3 F 82 20 134/55 98 03/13/18 16:02 03/13/18 16:02 03/13/18 18:48 03/13/18 16:02 03/13/18 16:02 Lab Results: Laboratory Results - last 24 hr 03/13/18 03/13/18 03/13/18 05:59 05:59 06:00 WBC 7.4 RBC 3.12 L Hgb 9.4 L Hct 28 L MCV 90 MCH 30 MCHC 34 RDW 14 Plt Count 396 MPV 6.3 L Neut % (Auto) Not Reportable Lymph % (Auto) Not Reportable [place] % (Auto) Not Reportable Eos % (Auto) Not Reportable Baso % (Auto) Not Reportable Absolute Neuts (auto) 4.8 Absolute Lymphs (auto) 1.2 Absolute Monos (auto) 0.7 Absolute Eos (auto) 0.7 H Absolute Basos (auto) 0.1 Absolute Nucleated RBC Not Reportable Neutrophils % 68 Lymphocytes % 14 L Monocytes % 11 H Eosinophils % 5 Basophils % 2 Nucleated RBC % Not Reportable Abs Neuts (Manual) 5.0 Abs Lymphs (Manual) 1.0 Abs Monocytes (Manual) 0.8 Absolute Eos (Manual) 0.4 Abs Basophils (Manual) 0.1 Normal RBC Morphology Not Reportable Polychromasia 1+ Hem Pathologist Commnt INR (Anticoag Therapy) 1.91 H Sodium 135 L Potassium 4.0 Chloride 101 Carbon Dioxide 25 Anion Gap 9 BUN 15 Creatinine 0.98 H Est GFR ( Amer) 68.7 Est GFR (Non-Af Amer) 53.4 BUN/Creatinine Ratio 15.3 Glucose 92 Calcium 8.9 Exam: LUNGS: Clear HEART: reg rhythm ABDOMEN: soft EXTREMITIES: Left knee clean NEUROLOGIC: Alert and oriented. Non-focal exam Assessment/Plan: 1. Left TKA: PT/OT. f/u with Dr. Sanders. 2. Hypothyroidism: Cytomel/Synthroid 3. HTN: lisinopril/HCTZ. BP higher in AM, but better later in the day when sitting up. 4. DVT Prophylaxis: coumadin 6mg 5. Analgesia: She would prefer smaller doses more frequently.scheduled tylenol , oxycodone and tramadol 50mg q3h prn. 100mg Celebrex qday. cryocuff. 6. Cognitive decline: Namenda 7. Acute post-operative anemia: stable. follow H/H. 8. Advanced directives: DNR 03/13/18 20:00
[2018-03-13] MEDS: Mirtazapine TAB* 15 MG PO SCH (22:21)
[2018-03-14] MEDS: oxyCODONE TAB* 5 MG TAB PO PRN (01:04)
[2018-03-14] MEDS: traMADol TAB* 50 MG PO PRN ×4 (03:57→22:48)
[2018-03-14] MEDS: Levothyroxine TAB* 50 MCG TAB PO SCH (07:02)
[2018-03-14] MEDS: Acetaminophen TAB* 325 MG PO SCH ×4 (08:34→20:01)
[2018-03-14] MEDS: Memantine TAB* 10 MG PO SCH ×2 (08:39→20:02)
[2018-03-14] MEDS: Liothyronine TAB* 5 MCG PO SCH (08:39)
[2018-03-14] MEDS: celeCOXIB CAP* 100 MG PO SCH (08:40)
[2018-03-14] MEDS: Docusate CAP* 100 MG PO SCH ×2 (08:40→20:02)
[2018-03-14] MEDS: Lisinopril TAB* 10 MG PO SCH (08:40)
[2018-03-14] MEDS: Hydrochlorothiazide TAB* 25 MG PO SCH (08:43)
--- NOTE | 2018-03-14 12:43 | PMRUTEAM ---
PMRU: Team Meeting Current Status: Nursing: Current Status Skin Deviations [left knee] Incision Skin Deviations [Back] Other Skin Deviations [Bilateral Other Buttocks] Skin Deviation Description [ cryo unit in place left knee] Skin Deviation Description [ worts Back] Skin Deviation Description [ sl reddened Bilateral Buttocks] Physical Therapy: Current Status Bed Mobility Assistance Supervision Transfer Moblility Assistance Supervision Transfer/Bed Mobility Rolling Walker Recommended Devices Transfer Mobility Comment pt. is able to perform a transfer using a 2 w/w S x 1. Ambulation Assistance Supervision Ambulation Assistive Devices Rolling Walker Number of Feet Patient 150' Ambulated Ambulation Comment Pt. presents an improved. modified reciprocal type gait pattern. Stairs Assistance Supervision Stairs Recommended Devices Two Rails Number of Stairs 5 Curb Not Tested Occupational Therapy: Current Status Upper Body Dressing Supervision Upper Body Dressing Progress setup Lower Body Dressing Supervision Lower Body Dressing Progress setup/supervision with use of sock aid Bathing Supervision Bathing Progress setup/supervision Toileting Supervision Toilet Transfer Supervision Toilet Transfer Progress with FWW and gait belt +OTC Shower Transfer Supervision Shower Transfer Progress with FWW and gait belt +grab bar to shower bench Eating Ind with Adaptive Equip Eating Progress partial dentures Rec Therapy: Current Status Summary of Assessment and Pt. was open to conversation - brightened Clinical Impression throughout conversation. Pt. states she enjoys her life and was able to identify with interests. Pt. expressed interest in continued leisure involvement. Treatment Goals Pt. will engage in leisure activities as tolerated while on the unit. Treatment Plan Provide RT services and encourage involvement. Social Work: Current Status Discharge Plan return home with home care svs and family support Potential for Family Training pt's daughter is involved and supportive Anticipated Discharge Home Destination Anticipated Discharge d/c home alone Destination Comment Discharge With home care svs and family support Nutrition: Current Status Monitoring full nutrition assessment planned 03/16 per NDS protocol. Considering advanced age, cont to eat well overall w/regular diet. Last BM 03/13. Initial goals continue (as outlined below). Goals: Physical Therapy: Initial Goals Bed Mobility Assistance Independent Transfer Mobility Assistance Independent Transfer/Bed Mobility None Recommended Devices Ambulation Independent Ambulation Recommended Devices Rolling Walker Ambulation Distance 150 Stairs Assistance Independent Stair Recommended Devices Two Rails Number of Stairs 5 Physical Therapy: Updated Goals Bed Mobility Assistance Independent Transfer Mobility Assistance Independent Transfer/Bed Mobility Rolling Walker Recommended Devices Ambulation Assistance Independent Ambulation Assistive Devices Rolling Walker Ambulation Distance (ft) 150 Stairs Assistance Independent Stairs Recommended Devices Two Rails Number of Stairs 5 Occupational Therapy: Initial Goals Goals to be Completed in (Days 7-10 ) Upper Body Bathing Routine Modified Independent with Lower Body Bathing Routine Modified Independent with Upper Body Dressing Routine Independent Lower Body Dressing Routine Modified Independent with Toilet Hygeine and Clothing Modified Independent with Management Routine Toilet Transfer Routine Modified Independent with Tub Transfer Routine Modified Independent with Functional Transfers for ADL Modified Independent with Grooming Routine Modified Independent with Feeding Routine Independent Light Housekeeping Tasks Minimal Contact Assist Nutrition: Goals Intervention Goals 1. adequate po intake to support post-op healing and maintenance of lean body mass without add'l wt gain 2. maintain bowel regularity w/o constipation or diarrhea Social Work: Goals Discharge Plan return home with home care svs and family support Potential for Family Training pt's daughter is involved and supportive Anticipated Discharge Home Destination Anticipated Discharge d/c home alone Destination Comment Discharge With home care svs and family support Care Plan: Care Plan ADL's - Improve/Maintain Start: 03/06/18 15:42 Freq: [email or web address] Status: Active Target: Protocol: Activity Type Activity Date Activity User E-Sign Co-Sign Detail Recorded Client Recorded Date Recorded By Document 03/13/18 11:17 [id number] [email or web address] 03/13/18 11:17 [id number] 03/13/18 11:17 PMRU Outcome: ADL's/ADL Transfers Orders/Interventions Occupational Therapy Evaluation & Treatment Communication Tool in Patient Room Device Yes Address Deficits Secondary To: Left TKA Patient to receive OT 5x/wk for 60-120 Therex min/day Self Care Management Group Therapy UE/LE ADL's with Assist Yes: Román ADL Transfers with Assist Yes: Román Toileting: Transfers,Clothing Management Yes: Román ,Hygeine w/Assist Light Kitchen/Laundry w/Assist Yes: initial Benjamín Progression Toward Outcome/Goals Progressing Outcome/Goals Met Pt participated well in ADL treatment session, continues to have eyes closed majority of the time and requires cues for encouragement to complete tasks as independently as possible, though able to complete ADL routine and transfers during session this date with supervision/ setupA with occasional cues /reminders. Cardiovascular-Improve/Maintain Start: 03/07/18 00:42 Freq: DAILY@1200 Status: Active Target: Protocol: Activity Type Activity Date Activity User E-Sign Co-Sign Detail Recorded Client Recorded Date Recorded By Document 03/14/18 03:06 [id number] [email or web address] 03/14/18 03:06 [id number] 03/14/18 03:06 Outcome: Cardiovascular Current Cardiovascular Outcome/Goal Maintain/ achieve baseline HR, BP , Perfusion Maintain/ improve perfusion Maintain/ achieve hemodynamic stability Progression Towards Outcome/Goal Progressing Discharge Planning - Improve/Maintain Start: 03/10/18 01:14 Freq: DAILY@1200 Status: Active Target: Protocol: Activity Type Activity Date Activity User E-Sign Co-Sign Detail Recorded Client Recorded Date Recorded By Document 03/14/18 03:06 [id number] [email or web address] 03/14/18 03:06 [id number] 03/14/18 03:06 PMRU Outcome: Discharge Planning Update Patient Family No Outcome/Goals Demonstrates Understanding of Discharge Plan Progression Toward Outcome/Goals Progressing Education-Improve/Maintain Start: 03/10/18 01:14 Freq: DAILY@1200 Status: Active Target: Protocol: Activity Type Activity Date Activity User E-Sign Co-Sign Detail Recorded Client Recorded Date Recorded By Document 03/14/18 03:10 [id number] [email or web address] 03/14/18 03:10 [id number] 03/14/18 03:10 PMRU Outcome: Education Outcome/Goals Demonstrate/ Verbalize Understanding of Written Discharge Instructions Demonstrates Skills Encourage Questions Progression Toward Outcome/Goals Progressing Outcome/Goals Met Comment pain education given Genitourinary-Improve/Maintain Start: 03/07/18 00:42 Freq: DAILY@1200 Status: Active Target: Protocol: Activity Type Activity Date Activity User E-Sign Co-Sign Detail Recorded Client Recorded Date Recorded By Document 03/14/18 03:06 [id number] [email or web address] 03/14/18 03:06 [id number] 03/14/18 03:06 Outcome: Genitourinary Outcome/Goals Maintain/ Achieve Urinary Continence Maintain/ Achieve Adequate Urinary Output Progression Toward Outcome/Goals Progressing Infection-Improve/Maintain Start: 03/07/18 00:42 Freq: DAILY@1200 Status: Active Target: Protocol: Activity Type Activity Date Activity User E-Sign Co-Sign Detail Recorded Client Recorded Date Recorded By Document 03/14/18 03:06 [id number] [email or web address] 03/14/18 03:06 [id number] 03/14/18 03:06 Outcome: Infection Outcome/Goals Achieve Optimal Health Status Related to Diagnosis Progression Toward Outcome/Goals Progressing Medication Administration Start: 03/10/18 01:14 Freq: DAILY@1200 Status: Active Target: Protocol: Activity Type Activity Date Activity User E-Sign Co-Sign Detail Recorded Client Recorded Date Recorded By Document 03/14/18 03:10 [id number] [email or web address] 03/14/18 03:10 [id number] 03/14/18 03:10 PMRU Outcome: Medication Administration Assess Patient Knowledge/Teach Med No Education for all Meds Outcome/Goals Patient Independent with Medication Administration at Home Demonstrates Understanding Progression Towards Outcome/Goals Progressing Is Patient Going Home on Lovenox? No Metabolic Status-Improve/Maintain Start: 03/07/18 00:42 Freq: DAILY@1200 Status: Complete Target: Protocol: Activity Type Activity Date Activity User E-Sign Co-Sign Detail Recorded Client Recorded Date Recorded By Document 03/10/18 01:13 [id number] [email or web address] 03/10/18 01:13 [id number] 03/10/18 01:13 Outcome: Metabolic Status Outcome/Goals Maintain/ Improve Metabolic Status Progression Toward Outcome/Goals Progressing Mobility- Improve/Maintain Start: 03/06/18 11:04 Freq: DAILY@1200 Status: Active Target: Protocol: Activity Type Activity Date Activity User E-Sign Co-Sign Detail Recorded Client Recorded Date Recorded By Document 03/13/18 12:27 [id number] [email or web address] 03/13/18 12:27 [id number] 03/13/18 12:27 PMRU Outcome: Mobility Physical Therapy Evaluation and Yes Treatment Activity OOB with Assistance Yes WBAT Yes Device Yes Assistance Yes Patient to be seen 5x/wk for 60-120 min/ Therex day for: Mobility Training Gait Training Balance Outcome/Goals Maintain/ Achieve Baseline Mobility Status Improve Mobility Status Demonstrates Proper Use of Assistive Devices Free from Complications of Immobility Progression Toward Outcome/Goals Progressing Bed Mobility Yes: Independent Transfers Yes: Modified independent with RW Gait x ft Yes: Modified independent 150 ' with RW Up/Down Stairs Yes: Independent 5 steps 2 railings With HEP Yes: Independent Pain/Comfort- Improve/Maintain Start: 03/10/18 01:14 Freq: DAILY@1200 Status: Active Target: Protocol: Activity Type Activity Date Activity User E-Sign Co-Sign Detail Recorded Client Recorded Date Recorded By Document 03/14/18 03:07 [id number] [email or web address] 03/14/18 03:07 [id number] 03/14/18 03:07 PMRU Outcome: Pain/Comfort Outcome/Goals Demonstrates Knowledge and Use of Available Comfort Measures Maintain Comfort Level Allowing Patient to Fully Participate in Rehab Progression Toward Outcome/Goals Not Progressing Outcome/Goals Met Comment pt very frustrated with still having pain along with not feeling as if she is getting it on time. Safety- Improve/Maintain Start: 03/10/18 01:14 Freq: DAILY@1200 Status: Active Target: Protocol: Activity Type Activity Date Activity User E-Sign Co-Sign Detail Recorded Client Recorded Date Recorded By Document 03/14/18 03:10 [id number] [email or web address] 03/14/18 03:10 [id number] 03/14/18 03:10 PMRU Outcome: Safety Outcome/Goals Remain Free of Injury or Harm Prevent Falls/ Injury Progression Toward Outcome/Goals Progressing Outcome/Goals Met Comment PA in place Medicine Note: Length of Stay: 3 days Anticipated Discharge Destination: Home Tentative Discharge Date: 03/17/18 Discharged to: home
--- NOTE | 2018-03-14 16:47 | PN ---
Progress Note Date of Service: 03/14/18 Note: BRUNO BENAVIDES was visited. Therapy notes read and reviewed. She was discussed in interdisciplinary team rounds. Making gains with therapy. She had her own bottle of Xanax at the bedside and this was sent to [facility] Current Medications: Active Medications Generic Name Dose Route Start Last Admin Trade Name Freq PRN Reason Stop Dose Admin Acetaminophen 650 mg 03/12/18 12:00 03/14/18 12:36 Tylenol Tab* PO 650 mg QID JAMA Administration Alprazolam 0.5 mg 03/06/18 11:39 03/13/18 21:43 Xanax Tab* PO 0.5 mg TID PRN Administration ANXIETY Celecoxib 100 mg 03/10/18 09:00 03/14/18 08:40 Celebrex Cap* PO 100 mg DAILY JAMA Administration Docusate Sodium 100 mg 03/06/18 21:00 03/14/18 08:40 Colace Cap* PO 100 mg BID JAMA Administration Hydrochlorothiazide 12.5 mg 03/07/18 09:00 03/14/18 08:43 Hydrodiuril Tab* PO 12.5 mg DAILY JAMA Administration Levothyroxine Sodium 50 mcg 03/07/18 06:00 03/14/18 07:02 Synthroid Tab* PO 50 mcg DAILY@0600 JAMA Administration Liothyronine Sodium 5 mcg 03/07/18 09:00 03/14/18 08:39 Cytomel Tab* PO 5 mcg DAILY JAMA Administration Lisinopril 10 mg 03/07/18 09:00 03/14/18 08:40 Prinivil Tab* PO 10 mg DAILY JAMA Administration Magnesium Hydroxide 30 ml 03/06/18 11:25 Milk Of Magnesia Liq* PO Q6H PRN CONSTIPATION Memantine 10 mg 03/06/18 21:00 03/14/18 08:39 Namenda Tab* PO 10 mg BID JAMA Administration Mirtazapine 15 mg 03/06/18 21:00 03/13/18 22:21 Remeron Tab* PO 15 mg BEDTIME JAMA Administration Oxycodone HCl 2.5 mg 03/12/18 09:49 03/14/18 01:04 Roxycodone Tab* PO 2.5 mg Q6H PRN Administration severe pain. do tramadol first Pharmacy Profile Note 1 note 03/06/18 17:00 03/13/18 18:45 Coumadin Daily Reminder* FOLLOW UP 1 note 1700 JAMA Administration Senna 2 tab 03/06/18 11:25 Senokot Tab* PO BEDTIME PRN CONSTIPATION Tramadol HCl 50 mg 03/12/18 09:49 03/14/18 12:41 Ultram* PO 50 mg Q3H PRN Administration PAIN - MODERATE TO SEVERE Warfarin Sodium 6 mg 03/11/18 17:00 03/13/18 18:48 Coumadin Tab(*) PO 6 mg DAILY@1700 JAMA Administration Protocol Vital Signs: Vital Signs Temp Pulse Resp BP Pulse Ox 98.2 F 71 18 148/63 100 03/14/18 15:59 03/14/18 15:59 03/14/18 16:37 03/14/18 15:59 03/14/18 15:59 Exam: LUNGS: Clear HEART: reg rhythm ABDOMEN: soft EXTREMITIES: Left knee clean NEUROLOGIC: Alert and oriented. Non-focal exam Assessment/Plan: 1. Left TKA: PT/OT. f/u with Dr. Sanders. 2. Hypothyroidism: Cytomel/Synthroid 3. HTN: lisinopril/HCTZ. BP higher in AM, but better later in the day when sitting up. 4. DVT Prophylaxis: coumadin 6mg INR in am 5. Analgesia: She would prefer smaller doses more frequently.scheduled tylenol , oxycodone and tramadol 50mg q3h prn. 100mg Celebrex qday. cryocuff. 6. Cognitive decline: Namenda 7. Acute post-operative anemia: stable. follow H/H. 8. Advanced directives: DNR 03/14/18 16:47
[2018-03-14] MEDS: Warfarin TAB(*) 6 MG PO SCH (16:49)
[2018-03-14] MEDS: Mirtazapine TAB* 15 MG PO SCH (20:02)
[2018-03-14] MEDS: ALPRAZolam TAB* 0.5 MG PO PRN (20:04)
[2018-03-15] MEDS: traMADol TAB* 50 MG PO PRN ×5 (02:52→23:52)
[2018-03-15] MEDS: Levothyroxine TAB* 50 MCG TAB PO SCH (06:16)
[2018-03-15 07:55] LABS: ABS Basophils 0.1 10^3/ul (0-0.2); ABS Eosinophils 0.7 10^3/ul (0-0.6); ABS Monocytes 0.5 10^3/ul (0-0.8); ABS Neutrophils 5.1 10^3/ul (1.5-7.7); ABS Nucleated RBC 0 10^3/ul; Eosinophil % 9.4 % (0-6); Hematocrit 25 % (35-47); Hemoglobin 8.3 g/dl (12.0-16.0); Lymphocyte % 12.8 % (25-47); Mean Corpuscular HGB Conc 33 g/dl (31-36); Mean Corpuscular Hemoglobin 30 pg (27-31); Mean Corpuscular Volume 90 fL (80-97); Mean Platelet Volume 6.4 um3 (7.4-10.4); Nucleated Red Blood Cells % 0; Platelet Count 444 10^3/ul (150-450); Red Blood Count 2.78 10^6/ul (4.0-5.4); Red Cell Distribution Width 14 % (10.5-15); White Blood Count 7.4 10^3/ul (3.5-10.8)
[2018-03-15 08:00] LABS: INR 1.9 (0.77-1.02)
[2018-03-15 08:10] LABS: EGFR Non-African American 58.2 (>60)
[2018-03-15] MEDS: Acetaminophen TAB* 325 MG PO SCH ×4 (08:39→20:21)
[2018-03-15] MEDS: celeCOXIB CAP* 100 MG PO SCH (08:39)
[2018-03-15] MEDS: Liothyronine TAB* 5 MCG PO SCH (08:40)
[2018-03-15] MEDS: Lisinopril TAB* 10 MG PO SCH (08:40)
[2018-03-15] MEDS: Memantine TAB* 10 MG PO SCH ×2 (08:40→20:21)
[2018-03-15] MEDS: Hydrochlorothiazide TAB* 25 MG PO SCH (08:40)
[2018-03-15] MEDS: Docusate CAP* 100 MG PO SCH ×2 (08:40→20:21)
[2018-03-15] MEDS: ALPRAZolam TAB* 0.5 MG PO PRN ×2 (12:08→17:10)
[2018-03-15] MEDS: oxyCODONE TAB* 5 MG TAB PO PRN (15:46)
[2018-03-15] MEDS: Warfarin TAB(*) 6 MG PO SCH (17:09)
--- NOTE | 2018-03-15 19:58 | PN ---
Progress Note Date of Service: 03/15/18 Note: BRUNO BENAVIDES was visited. Therapy notes read and reviewed. She has some pain in her knee and is worried but looks pretty good while walking. Current Medications: Active Medications Generic Name Dose Route Start Last Admin Trade Name Freq PRN Reason Stop Dose Admin Acetaminophen 650 mg 03/12/18 12:00 03/15/18 17:08 Tylenol Tab* PO 650 mg QID JAMA Administration Alprazolam 0.5 mg 03/06/18 11:39 03/15/18 17:10 Xanax Tab* PO 0.5 mg TID PRN Administration ANXIETY Celecoxib 100 mg 03/10/18 09:00 03/15/18 08:39 Celebrex Cap* PO 100 mg DAILY JAMA Administration Docusate Sodium 100 mg 03/06/18 21:00 03/15/18 08:40 Colace Cap* PO 100 mg BID JAMA Administration Hydrochlorothiazide 12.5 mg 03/07/18 09:00 03/15/18 08:40 Hydrodiuril Tab* PO 12.5 mg DAILY JAMA Administration Levothyroxine Sodium 50 mcg 03/07/18 06:00 03/15/18 06:16 Synthroid Tab* PO 50 mcg DAILY@0600 JAMA Administration Liothyronine Sodium 5 mcg 03/07/18 09:00 03/15/18 08:40 Cytomel Tab* PO 5 mcg DAILY JAMA Administration Lisinopril 10 mg 03/07/18 09:00 03/15/18 08:40 Prinivil Tab* PO 10 mg DAILY JAMA Administration Magnesium Hydroxide 30 ml 03/06/18 11:25 Milk Of Magnesia Liq* PO Q6H PRN CONSTIPATION Memantine 10 mg 03/06/18 21:00 03/15/18 08:40 Namenda Tab* PO 10 mg BID JAMA Administration Mirtazapine 15 mg 03/06/18 21:00 03/14/18 20:02 Remeron Tab* PO 15 mg BEDTIME JAMA Administration Oxycodone HCl 2.5 mg 03/12/18 09:49 03/15/18 15:46 Roxycodone Tab* PO 2.5 mg Q6H PRN Administration severe pain. do tramadol first Pharmacy Profile Note 1 note 03/06/18 17:00 03/15/18 17:20 Coumadin Daily Reminder* FOLLOW UP 1 note 1700 JAMA Administration Senna 2 tab 03/06/18 11:25 Senokot Tab* PO BEDTIME PRN CONSTIPATION Tramadol HCl 50 mg 03/12/18 09:49 03/15/18 14:11 Ultram* PO 50 mg Q3H PRN Administration PAIN - MODERATE TO SEVERE Warfarin Sodium 6 mg 03/11/18 17:00 03/15/18 17:09 Coumadin Tab(*) PO 6 mg DAILY@1700 [facility] Administration Protocol Vital Signs: Vital Signs Temp Pulse Resp BP Pulse Ox 98.3 F 77 20 133/45 100 03/15/18 15:30 03/15/18 15:30 03/15/18 19:28 03/15/18 15:30 03/15/18 19:28 Lab Results: Laboratory Results - last 24 hr 03/15/18 03/15/18 03/15/18 07:18 07:31 07:31 WBC 7.4 RBC 2.78 L Hgb 8.3 L Hct 25 L MCV 90 MCH 30 MCHC 33 RDW 14 Plt Count 444 MPV 6.4 L Neut % (Auto) 69.2 Lymph % (Auto) 12.8 L [place] % (Auto) 7.3 H Eos % (Auto) 9.4 H Baso % (Auto) 1.3 Absolute Neuts (auto) 5.1 Absolute Lymphs (auto) 1.0 Absolute Monos (auto) 0.5 Absolute Eos (auto) 0.7 H Absolute Basos (auto) 0.1 Absolute Nucleated RBC 0 Nucleated RBC % 0 INR (Anticoag Therapy) 1.90 H Sodium 136 L Potassium 4.1 Chloride 102 Carbon Dioxide 27 Anion Gap 7 BUN 16 Creatinine 0.91 Est GFR ( Amer) 74.9 Est GFR (Non-Af Amer) 58.2 BUN/Creatinine Ratio 17.6 Glucose 101 H Calcium 8.7 Total Bilirubin 0.30 AST 20 ALT 22 Alkaline Phosphatase 129 H Total Protein 5.7 L Albumin 2.9 L Globulin 2.8 Albumin/Globulin Ratio 1.0 Exam: LUNGS: Clear HEART: reg rhythm ABDOMEN: soft EXTREMITIES: Left knee clean NEUROLOGIC: Alert and oriented. Non-focal exam Assessment/Plan: 1. Left TKA: PT/OT. f/u with Dr. Sanders. 2. Hypothyroidism: Cytomel/Synthroid 3. HTN: lisinopril/HCTZ. BP higher in AM, but better later in the day when sitting up. 4. DVT Prophylaxis: coumadin 6mg INR ok 5. Analgesia: She would prefer smaller doses more frequently.scheduled tylenol , oxycodone and tramadol 50mg q3h prn. 100mg Celebrex qday. cryocuff. 6. Cognitive decline: Namenda 7. Acute post-operative anemia: stable. follow H/H. 8. Advanced directives: DNR 03/15/18 19:59
[2018-03-15] MEDS: Mirtazapine TAB* 15 MG PO SCH (20:21)
[2018-03-16] MEDS: ALPRAZolam TAB* 0.5 MG PO PRN ×3 (03:45→17:32)
[2018-03-16] MEDS: traMADol TAB* 50 MG PO PRN ×4 (03:45→18:48)
[2018-03-16] MEDS: Levothyroxine TAB* 50 MCG TAB PO SCH (05:56)
[2018-03-16] MEDS: oxyCODONE TAB* 5 MG TAB PO PRN ×2 (05:57→12:11)
[2018-03-16] MEDS: celeCOXIB CAP* 100 MG PO SCH (08:53)
[2018-03-16] MEDS: Acetaminophen TAB* 325 MG PO SCH ×4 (08:53→21:49)
[2018-03-16] MEDS: Hydrochlorothiazide TAB* 25 MG PO SCH (08:54)
[2018-03-16] MEDS: Liothyronine TAB* 5 MCG PO SCH (08:54)
[2018-03-16] MEDS: Docusate CAP* 100 MG PO SCH ×2 (08:54→21:49)
[2018-03-16] MEDS: Lisinopril TAB* 10 MG PO SCH (08:54)
[2018-03-16] MEDS: Memantine TAB* 10 MG PO SCH ×2 (08:55→21:49)
[2018-03-16] MEDS: Warfarin TAB(*) 6 MG PO SCH (17:30)
--- NOTE | 2018-03-16 19:50 | PN ---
Progress Note Date of Service: 03/16/18 Note: BRUNO BENAVIDES was visited. Therapy notes read and reviewed.She is set for discharge tomorrow. She is in good shape. Will remove stitches prior to d/c Current Medications: Active Medications Generic Name Dose Route Start Last Admin Trade Name Freq PRN Reason Stop Dose Admin Acetaminophen 650 mg 03/12/18 12:00 03/16/18 17:30 Tylenol Tab* PO 650 mg QID JAMA Administration Alprazolam 0.5 mg 03/06/18 11:39 03/16/18 17:32 Xanax Tab* PO 0.5 mg TID PRN Administration ANXIETY Celecoxib 100 mg 03/10/18 09:00 03/16/18 08:53 Celebrex Cap* PO 100 mg DAILY JAMA Administration Docusate Sodium 100 mg 03/06/18 21:00 03/16/18 08:54 Colace Cap* PO 100 mg BID JAMA Administration Hydrochlorothiazide 25 mg 03/16/18 09:00 03/16/18 08:54 Hydrodiuril Tab* PO 25 mg DAILY JAMA Administration Levothyroxine Sodium 50 mcg 03/07/18 06:00 03/16/18 05:56 Synthroid Tab* PO 50 mcg DAILY@0600 JAMA Administration Liothyronine Sodium 5 mcg 03/07/18 09:00 03/16/18 08:54 Cytomel Tab* PO 5 mcg DAILY JAMA Administration Lisinopril 20 mg 03/16/18 09:00 03/16/18 08:54 Prinivil Tab* PO 20 mg DAILY JAMA Administration Magnesium Hydroxide 30 ml 03/06/18 11:25 Milk Of Magnesia Liq* PO Q6H PRN CONSTIPATION Memantine 10 mg 03/06/18 21:00 03/16/18 08:55 Namenda Tab* PO 10 mg BID JAMA Administration Mirtazapine 15 mg 03/06/18 21:00 03/15/18 20:21 Remeron Tab* PO 15 mg BEDTIME JAMA Administration Oxycodone HCl 2.5 mg 03/12/18 09:49 03/16/18 12:11 Roxycodone Tab* PO 2.5 mg Q6H PRN Administration severe pain. do tramadol first Pharmacy Profile Note 1 note 03/06/18 17:00 03/16/18 17:39 Coumadin Daily Reminder* FOLLOW UP 1 note 1700 [facility] Administration Senna 2 tab 03/06/18 11:25 Senokot Tab* PO BEDTIME PRN CONSTIPATION Tramadol HCl 50 mg 03/12/18 09:49 03/16/18 18:48 Ultram* PO 50 mg Q3H PRN Administration PAIN - MODERATE TO SEVERE Warfarin Sodium 6 mg 03/11/18 17:00 03/16/18 17:30 Coumadin Tab(*) PO 6 mg DAILY@1700 [facility] Administration Protocol Vital Signs: Vital Signs Temp Pulse Resp BP Pulse Ox 97.8 F 92 18 144/64 100 03/16/18 15:11 03/16/18 15:11 03/16/18 18:48 03/16/18 15:11 03/16/18 15:51 Exam: LUNGS: Clear HEART: reg rhythm ABDOMEN: soft EXTREMITIES: Left knee clean NEUROLOGIC: Alert and oriented. Non-focal exam Assessment/Plan: 1. Left TKA: PT/OT. f/u with Dr. Sanders. Will remove stitches prior to d/c 2. Hypothyroidism: Cytomel/Synthroid 3. HTN: lisinopril/HCTZ. BP higher in AM, but better later in the day when sitting up. 4. DVT Prophylaxis: coumadin 6mg INR ok 5. Analgesia: She would prefer smaller doses more frequently.scheduled tylenol , oxycodone and tramadol 50mg q3h prn. 100mg Celebrex qday. cryocuff. 6. Cognitive decline: Namenda 7. Acute post-operative anemia: stable. follow H/H. 8. Advanced directives: DNR 03/16/18 19:50
[2018-03-16] MEDS: Mirtazapine TAB* 15 MG PO SCH (21:49)
[2018-03-17] MEDS: traMADol TAB* 50 MG PO PRN ×3 (00:35→10:40)
[2018-03-17] MEDS: Levothyroxine TAB* 50 MCG TAB PO SCH (06:03)
[2018-03-17] MEDS: ALPRAZolam TAB* 0.5 MG PO PRN ×2 (06:10→11:57)
[2018-03-17 06:45] VITALS: BP 172/84
[2018-03-17 07:01] LABS: INR 1.84 (0.77-1.02)
[2018-03-17] MEDS: Docusate CAP* 100 MG PO SCH (09:02)
[2018-03-17] MEDS: Lisinopril TAB* 10 MG PO SCH (09:02)
[2018-03-17] MEDS: Acetaminophen TAB* 325 MG PO SCH (09:02)
[2018-03-17] MEDS: Memantine TAB* 10 MG PO SCH (09:04)
[2018-03-17] MEDS: celeCOXIB CAP* 100 MG PO SCH (09:04)
[2018-03-17] MEDS: Hydrochlorothiazide TAB* 25 MG PO SCH (09:04)
[2018-03-17] MEDS: Liothyronine TAB* 5 MCG PO SCH (09:04)
[2018-03-17] MEDS: oxyCODONE TAB* 5 MG TAB PO PRN (11:55)
--- NOTE | 2018-03-18 13:34 | DS ---
CC: Dr. Browne at [facility].* DISCHARGE SUMMARY: DATE OF ADMISSION: 03/06/18 DATE OF DISCHARGE: 03/17/18 DISCHARGE DIAGNOSES: 1. Left total knee replacement. 2. Anxiety. 3. Hypertension. 4. Hypothyroidism. 5. Cognitive decline. HISTORY OF ILLNESS AND HOSPITAL COURSE: For complete history of the events leading up to her rehab stay, please see the history and physical dictated by me on 03/06/18. While on the rehab unit, the patient had significant difficulties with pain control. She had some difficulty in tolerating opioids. When the opioids were withheld, she would tell everyone her pain was unbearable. She ultimately was treated with a combination of tramadol and half a dose of Percocet as well as Celebrex. This seemed to help alleviate her pain. The patient's wound healed well. Her stitches were able to be removed prior to discharge. The patient otherwise was medically stable. She was seen by both Physical Therapy and Occupational Therapy while on the rehab unit. She made good games with both disciplines. With physical therapy at the time of admission, the patient required contact guard to do a transfer, she was contact guard for ambulating, but could only ambulate 15 feet. With occupational therapy at the time of admission, the patient required mod assist for toileting , contact guard for toilet transfers. She was supervision for upper body dressing, max assist for lower body dressing. By the time of discharge, the patient was independent in transfers, independent in ambulating 300 feet with a rolling walker, independently going up again 10 stairs, independent with dressing, independent with toileting, and toilet transfers. The patient was discharged home 03/17/18. DISCHARGE DIET: Regular. DISCHARGE MEDICATIONS: 1. Xanax 0.5 mg 3 times a day as needed. 2. Celebrex 100 mg daily. 3. Hydrochlorothiazide 25 mg daily. 4. Synthroid 50 mcg daily. 5. Cytomel 5 mcg daily. 6. Lisinopril 20 mg daily. 7. Namenda 10 mg twice daily. 8. Remeron 15 mg at bedtime. 9. Oxycodone 2.5 mg every 6 hours as needed. 10. Tramadol 50 mg every 3 hours as needed. 11. Coumadin 6 mg daily. SERVICES AFTER DISCHARGE: Through visiting nurse service of [place], she will have home nursing, home physical therapy and a home health aide. Follow up with Dr. Bridget Sanders in 1 to 2 weeks. [id number]/[facility] #: [id number] TAO
== END 2018-03-17 13:45 | disposition home health service (06) | DRG 560 ==
LOC: PMRU 10:10
PROVIDERS: ADMIT Physical Medicine & Rehabilitation; ATTEND Physical Medicine & Rehabilitation
PROC: F07Z5ZZ Bed Mobility Treatment (ICD-10-PCS; principal; 2018-03-06)
PROC: F07Z9ZZ Gait Training/Functional Ambulation Treatment (ICD-10-PCS; 2018-03-06)
PROC: F07Z8ZZ Transfer Training Treatment (ICD-10-PCS; 2018-03-06)
PROC: F08Z0ZZ Bathing/Showering Techniques Treatment (ICD-10-PCS; 2018-03-06)
PROC: F08Z1ZZ Dressing Techniques Treatment (ICD-10-PCS; 2018-03-06)
PROC: F08Z3ZZ Feeding/Eating Treatment (ICD-10-PCS; 2018-03-06)
DX: Z47.1 Aftercare following joint replacement surgery (principal); D62 Acute posthemorrhagic anemia; Z96.652 Presence of left artificial knee joint; F41.9 Anxiety disorder, unspecified; I10 Essential (primary) hypertension; E03.9 Hypothyroidism, unspecified; R41.81 Age-related cognitive decline; Z79.01 Long term (current) use of anticoagulants; Z79.899 Other long term (current) drug therapy; Z88.8 Allergy status to other drugs, medicaments and biological substances; Z66 Do not resuscitate
CPT/HCPCS: 36415; 80048; 80053; 85025; 85060; 85610; A9270-GY

== ENCOUNTER 2018-03-25 12:49 | Emergency (ER) | payer MEDICARE ==
[2018-03-25 14:11] LABS: ABS Basophils 0.1 10^3/ul (0-0.2); ABS Eosinophils 0.4 10^3/ul (0-0.6); ABS Monocytes 0.5 10^3/ul (0-0.8); ABS Neutrophils 4.1 10^3/ul (1.5-7.7); ABS Nucleated RBC 0 10^3/ul; Eosinophil % 6.4 % (0-6); Hematocrit 31 % (35-47); Hemoglobin 10.4 g/dl (12.0-16.0); Lymphocyte % 16.5 % (25-47); Mean Corpuscular HGB Conc 33 g/dl (31-36); Mean Corpuscular Hemoglobin 30 pg (27-31); Mean Corpuscular Volume 89 fL (80-97); Mean Platelet Volume 6.3 um3 (7.4-10.4); Nucleated Red Blood Cells % 0; Platelet Count 379 10^3/ul (150-450); Red Cell Distribution Width 14 % (10.5-15); White Blood Count 6.1 10^3/ul (3.5-10.8)
[2018-03-25 14:19] LABS: INR 1.53 (0.77-1.02)
[2018-03-25 14:29] LABS: EGFR Non-African American 55.4 (>60)
[2018-03-25] MEDS ORDERED: Iodixanol* (CONTRAST) 320 MG/ML 100 ML SDV IV ONE (15:11)
--- NOTE | 2018-03-25 15:18 | RAD ---
INDICATION: Weakness. COMPARISON: Comparison is made with prior studies from January 31, 2014 and November 22, 2017. TECHNIQUE: Dual-energy PA and lateral views of the chest were obtained. FINDINGS: The heart is within normal limits in size. Mediastinal and hilar contours appear within normal limits. There is bilateral apical pleural-parenchymal scarring. The lungs are otherwise clear and hyperinflated. No pleural effusion is seen. IMPRESSION: NO EVIDENCE FOR ACTIVE CARDIOPULMONARY DISEASE.
[2018-03-25 15:28] LABS: Urine Appearance Clear; Urine Blood Negative (Negative); Urine Color Straw; Urine Ketones Negative (Negative); Urine Protein Negative (Negative); Urine Specific Gravity 1.003 (1.010-1.030); Urine Urobilinogen Negative (Negative)
--- NOTE | 2018-03-25 15:52 | RAD ---
INDICATION: Shortness of breath. COMPARISON: Comparison is made with a prior chest x-ray study from March 25, 2018. TECHNIQUE: A CT angiogram of the chest was performed with intravenous following intravenous injection of 66 ml of Visipaque 320 nonionic contrast. Contiguous axial sections were obtained from the lung apices through the lung bases. Images were reconstructed in the coronal and sagittal planes. FINDINGS: There is relatively homogeneous opacification of the pulmonary arteries. No intraluminal filling defect or pulmonary embolism is seen. The heart is within normal limits in size. No pericardial effusion is present. The thoracic aorta is normal in caliber. There is no gross evidence for dissection. There is mild calcific plaque present. No significant enlarged mediastinal or hilar lymph nodes are seen. Images of the upper abdomen demonstrate a a fluid density lesion in the left hepatic lobe measuring 1.7 x 1.5 cm in size suggestive of a cyst or hemangioma. There is bilateral apical pleural and parenchymal scarring. There is mild dependent bilateral lower lobe subsegmental atelectasis. The lungs are otherwise clear. No pleural effusion or pneumothorax is seen. No significant focal osseous abnormality is seen. IMPRESSION: NO EVIDENCE FOR PULMONARY EMBOLISM.
[2018-03-25] MEDS ORDERED: NS 0.9% 1000 ML*IV.FLUID IV ONE (17:45)
--- NOTE | 2018-03-25 18:56 | ED ---
Con Casillas Elizabeth, scribed for Reji Mejias MD on 03/25/18 at 1402 . Complex/Multi-Sys Presentation - HPI Summary HPI Summary: This patient is an 88 year old F presenting to [facility] via EMS with a chief complaint of weakness since 09:30. The patient was discharged home from rehab earlier this week following a left knee replacement. Symptoms aggravated by nothing. Symptoms alleviated by nothing. Patient reports shortness of breath, pain in her sternum, and left knee pain. The patients family reports that the patient was confused. Patient denies fever, productive cough. - History Of Current Complaint Chief Complaint: EDWeakness Time Seen by Provider: 03/25/18 13:41 Hx Obtained From: Patient, Family/Datastage Architect Onset/Duration: Sudden Onset, Lasting Hours, Still Present Timing: Constant Severity Currently: Mild Severity Initially: Mild Associated Signs And Symptoms: Positive: Confusion, SOB, Chest Pain, Other - left knee pain - Allergies/Home Medications Allergies/Adverse Reactions: Allergies Allergy/AdvReac Type Severity Reaction Status Date / Time hydrocodone [From Vicodin] Allergy Intermediate Nausea And Verified 03/25/18 13: 00 Vomiting Home Medications: Home Medications Ascorbic Acid TAB* [Vitamin C TAB*] 2,000 mg PO DAILY 03/25/18 [History Confirmed 03/25/18] Cholecalciferol TAB* [Vitamin D TAB*] 1,000 unit PO DAILY 03/25/18 [History Confirmed 03/25/18] Glucosamine CAP (NF) 1,000 mg PO DAILY 03/25/18 [History Confirmed 03/25/18] [place]-3 Fatty Acids (Nf) [Fish Oil (NF)] 1,000 mg PO DAILY 03/25/18 [History Confirmed 03/25/18] Psyllium PAYAL* [Metamucil PAYAL*] 2 pkt PO DAILY 03/25/18 [History Confirmed ] PMH/Surg Hx/FS Hx/Imm Hx Endocrine/Hematology History: Reports: Hx Thyroid Disease - hypo Denies: Hx Bone Marrow Disease, Hx Diabetes, Hx Sickle Cell Disease, Hx Anemia Cardiovascular History: Reports: Hx Hypertension Denies: Hx Congestive Heart Failure, Hx Pacemaker/ICD, Other Cardiovascular Problems/Disorders Respiratory History: Reports: Hx Pneumonia, Other Respiratory Problems/ Disorders - PLEURECY, 10-15 years ago Denies: Hx Asthma, Hx Chronic Obstructive Pulmonary Disease (COPD) GI History: Reports: Other GI Disorders - chronic diarhhea History: Denies: Hx Renal Disease Musculoskeletal History: Reports: Hx Arthritis - OSTEO- KNEES, Other Musculoskeletal History - 01/29 BUNION LEFT FOOT removed, CHRONIC LEFT KNEE PAIN Sensory History: Reports: Hx Contacts or Glasses - reading, Hx Hearing Aid - not with her, Hx Hearing Problem Comment Only: Hx Cataracts - removed in September Opthamlomology History: Reports: Hx Contacts or Glasses - reading Comment Only: Hx Cataracts - removed in September Neurological History: Comment Only: Hx Dementia - min cognitive decline Psychiatric History: Reports: Hx Anxiety, Hx Depression Denies: Hx Panic Disorder, Hx Suicide Attempt, Hx of Violent Episodes Against Others, Hx Substance Abuse, Other Psychiatric Issues/Disorders - Cancer History Cancer Type, 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 D&C Hx Anesthesia Reactions: No Infectious Disease History: No Infectious Disease History: Denies: Hx Clostridium Difficile, Hx Hepatitis, Hx Human Immunodeficiency Virus (HIV), Hx of Known/Suspected MRSA, Hx Shingles, Hx Tuberculosis, History Other Infectious Disease, Traveled Outside the [place] in Last 30 Days - Family History Known Family History: Positive: None Family History: no cardiovascular issues in family lineage - Social History Alcohol Use: None Alcohol Amount: 1 DRINK/WEEK Substance Use Type: Reports: None Substance Use Comment - Amount & Last Used: ALPRAZOLAM TID PRN- USUALLY DAILY Hx Tobacco Use: No Smoking Status (MU): Former Smoker Type: Cigarettes Amount Used/How Often: 2 packs a day Length of Time of Smoking/Using Tobacco: 20+ YRS Have You Smoked in the Last Year: No Review of Systems Negative: Fever Positive: Chest Pain Positive: Shortness Of Breath. Negative: Cough Positive: Weakness All Other Systems Reviewed And Are Negative: Yes Physical Exam - Summary Physical Exam Summary: Appearance: The patient is well-nourished in no acute distress and in no acute pain. Skin: The skin is warm and dry and skin color reflects adequate perfusion. HEENT: The head is normocephalic and atraumatic. The pupils are equal and reactive. The conjunctivae are clear and without drainage. Nares are patent and without drainage. Mouth reveals moist mucous membranes and the throat is without erythema and exudate. The external ears are intact. The ear canals are patent and without drainage. The tympanic membranes are intact. Neck: the neck is supple with full range of motion and non-tender. There are no carotid bruits. There is no neck vein distension. Respiratory: Chest is non-tender. Crackles at base of left lung. Cardiovascular: Heart is regular rhythm and tachycardic. Patient exhibits orthostatic hypertension. There is no murmur or rub auscultated. There is no peripheral edema and pulses are symmetrical and equal. Abdomen: The abdomen is soft and non-tender. There are normal bowel sounds heard in all four quadrants and there is no organomegaly palpated. Musculoskeletal: There is no back tenderness noted. Extremities are non-tender with full range of motion. There is good capillary refill. There is no peripheral edema or calf tenderness elicited. Neurological: Patient is alert and oriented to person, place and time. The patient has symmetrical motor strength in all four extremities. Cranial nerves are grossly intact. Deep tendon reflexes are symmetrical and equal in all four extremities. Psychiatric: The patient has an appropriate affect and does not exhibit any anxiety or depression. Triage Information Reviewed: Yes Vital Signs On Initial Exam: Initial Vitals Temp Pulse Resp BP Pulse Ox 96.3 F 73 22 163/103 99 03/25/18 13:00 03/25/18 13:00 03/25/18 13:00 03/25/18 13:00 03/25/18 13:00 Vital Signs Reviewed: Yes Diagnostics - Vital Signs Vital Signs Temp Pulse Resp BP Pulse Ox 03/25/18 13:00 96.3 F 73 22 163/103 99 - Laboratory Lab Results: Lab Results 03/25/18 03/25/18 03/25/18 Range/Units 14:04 14:04 14:04 WBC 6.1 (3.5-10.8) 10^3/ul RBC 3.50 L (4.0-5.4) 10^6/ul Hgb 10.4 L (12.0-16.0) g/dl Hct 31 L (35-47) % MCV 89 (80-97) fL MCH 30 (27-31) pg MCHC 33 (31-36) g/dl RDW 14 (10.5-15) % Plt Count 379 (150-450) 10^3/ul MPV 6.3 L (7.4-10.4) um3 Neut % (Auto) 67.0 (38-83) % Lymph % (Auto) 16.5 L (25-47) % Riley % (Auto) 8.9 H (0-7) % Eos % (Auto) 6.4 H (0-6) % Baso % (Auto) 1.2 (0-2) % Absolute Neuts (auto) 4.1 (1.5-7.7) 10^3/ul Absolute Lymphs (auto) 1.0 (1.0-4.8) 10^3/ul Absolute Monos (auto) 0.5 (0-0.8) 10^3/ul Absolute Eos (auto) 0.4 (0-0.6) 10^3/ul Absolute Basos (auto) 0.1 (0-0.2) 10^3/ul Absolute Nucleated RBC 0 10^3/ul Nucleated RBC % 0 INR (Anticoag Therapy) 1.53 H (0.77-1.02) APTT 35.6 (26.0-36.3) seconds D-Dimer, Quantitative 605 H (Less Than 230) ng/mL Sodium 135 L (139-145) mmol/L Potassium 3.9 (3.5-5.0) mmol/L Chloride 100 L (101-111) mmol/L Carbon Dioxide 26 (22-32) mmol/L Anion Gap 9 (2-11) mmol/L BUN 18 (6-24) mg/dL Creatinine 0.95 (0.51-0.95) mg/dL Est GFR ( Amer) 71.2 (>60) Est GFR (Non-Af Amer) 55.4 (>60) BUN/Creatinine Ratio 18.9 (8-20) Glucose 93 (70-100) mg/dL Lactic Acid (0.5-2.0) mmol/L Calcium 9.3 (8.6-10.3) mg/dL Magnesium 2.3 (1.9-2.7) mg/dL Total Bilirubin 0.40 (0.2-1.0) mg/dL AST 14 (13-39) U/L ALT 10 (7-52) U/L Alkaline Phosphatase 123 H (34-104) U/L Total Creatine Kinase 33 (10-223) U/L Troponin I 0.01 (<0.04) ng/mL C-Reactive Protein 25.12 H (< 5.00) mg/L B-Natriuretic Peptide ( - 100) pg/mL Total Protein 6.7 (6.4-8.9) g/dL Albumin 3.7 (3.2-5.2) g/dL Globulin 3.0 (2-4) g/dL Albumin/Globulin Ratio 1.2 (1-3) TSH 4.28 (0.34-5.60) mcIU/mL Urine Color Urine Appearance Urine pH (5-9) Ur Specific [place] (1.010-1.030) Urine Protein (Negative) Urine Ketones (Negative) Urine Blood (Negative) Urine Nitrate (Negative) Urine Bilirubin (Negative) Urine Urobilinogen (Negative) Ur Leukocyte Esterase (Negative) Urine Glucose (Negative) 03/25/18 03/25/18 03/25/18 Range/Units 14:05 14:05 15:17 WBC (3.5-10.8) 10^3/ul RBC (4.0-5.4) 10^6/ul Hgb (12.0-16.0) g/dl Hct (35-47) % MCV (80-97) fL MCH (27-31) pg MCHC (31-36) g/dl RDW (10.5-15) % Plt Count (150-450) 10^3/ul MPV (7.4-10.4) um3 Neut % (Auto) (38-83) % Lymph % (Auto) (25-47) % Riley % (Auto) (0-7) % Eos % (Auto) (0-6) % Baso % (Auto) (0-2) % Absolute Neuts (auto) (1.5-7.7) 10^3/ul Absolute Lymphs (auto) (1.0-4.8) 10^3/ul Absolute Monos (auto) (0-0.8) 10^3/ul Absolute Eos (auto) (0-0.6) 10^3/ul Absolute Basos (auto) (0-0.2) 10^3/ul Absolute Nucleated RBC 10^3/ul Nucleated RBC % INR (Anticoag Therapy) (0.77-1.02) APTT (26.0-36.3) seconds D-Dimer, Quantitative (Less Than 230) ng/mL Sodium (139-145) mmol/L Potassium (3.5-5.0) mmol/L Chloride (101-111) mmol/L Carbon Dioxide (22-32) mmol/L Anion Gap (2-11) mmol/L BUN (6-24) mg/dL Creatinine (0.51-0.95) mg/dL Est GFR ( Amer) (>60) Est GFR (Non-Af Amer) (>60) BUN/Creatinine Ratio (8-20) Glucose (70-100) mg/dL Lactic Acid 0.9 (0.5-2.0) mmol/L Calcium (8.6-10.3) mg/dL Magnesium (1.9-2.7) mg/dL Total Bilirubin (0.2-1.0) mg/dL AST (13-39) U/L ALT (7-52) U/L Alkaline Phosphatase (34-104) U/L Total Creatine Kinase (10-223) U/L Troponin I (<0.04) ng/mL C-Reactive Protein (< 5.00) mg/L B-Natriuretic Peptide 35 ( - 100) pg/mL Total Protein (6.4-8.9) g/dL Albumin (3.2-5.2) g/dL Globulin (2-4) g/dL Albumin/Globulin Ratio (1-3) TSH (0.34-5.60) mcIU/mL Urine Color Straw Urine Appearance Clear Urine pH 6.0 (5-9) Ur Specific [place] 1.003 L (1.010-1.030) Urine Protein Negative (Negative) Urine Ketones Negative (Negative) Urine Blood Negative (Negative) Urine Nitrate Negative (Negative) Urine Bilirubin Negative (Negative) Urine Urobilinogen Negative (Negative) Ur Leukocyte Esterase Negative (Negative) Urine Glucose Negative (Negative) Result Diagrams: 03/25/18 14:04 03/25/18 14:04 Lab Statement: Any lab studies that have been ordered have been reviewed, and results considered in the medical decision making process. - Radiology CXR Xray Interpretation: No Acute Changes - IMPRESSION: NO EVIDENCE FOR ACTIVE CARDIOPULMONARY DISEASE. Dr. Mejias has reviewed this report. Radiology Interpretation Completed By: Radiologist - CT Chest CTA CT Interpretation: No Acute Changes - IMPRESSION: NO EVIDENCE FOR PULMONARY EMBOLISM. Dr. Goins has reviewed this report. CT Interpretation Completed By: Radiologist - EKG 13:49 Cardiac Rate: NL - at 73 BPM EKG Rhythm: Sinus Rhythm EKG Interpretation: NSR Complex Multi-Symp Course/Dx Course Of Treatment: Ms. Guerra presented with a C/O weakness that started today. She was released from rehab a week ago after left TKA. Her wound is healing well, she is doing her PT exercises and it looks clean. Her D-dimer was elevated and a CTA ruled out PE. She does get tachycardic when she ambulates but doesn't drop her SPO2. This may all be caused by mild dehydration and she is getting IV NS at this point. I suspect she will go home at that point. - Diagnoses Provider Diagnoses: Dehydration Discharge - Sign-Out/Discharge Documenting (check all that apply): Discharge/Admit/Transfer - Discharge Plan Condition: Stable Disposition: HOME Patient Education Materials: Dehydration (ED) Referrals: Patt Browne MD [Primary Care Provider] - 2 Days Additional Instructions: Follow up with primary care physician in 2-3 days. Return to emergency department with any new or worsening symptoms. - Billing Disposition and Condition Condition: STABLE Disposition: HOME The documentation as recorded by the Con aguirre Elizabeth accurately reflects the service I personally performed and the decisions made by me, Reji Mejias MD.
[2018-03-25 19:30] VITALS: BP 144/85
== END 2018-03-25 19:24 | disposition home or self-care (01) ==
LOC: ED 12:49
DX: E86.0 Dehydration (principal); E03.9 Hypothyroidism, unspecified; I10 Essential (primary) hypertension; Z87.891 Personal history of nicotine dependence; Z85.828 Personal history of other malignant neoplasm of skin
CPT/HCPCS: 36415; 71046; 71275; 80053; 81003; 82550; 83605; 83735; 83880; 84443; 84484; 85025; 85379; 85610; 85730; 86140; 93005; 96360; 96374; 99284; Q9967

== ENCOUNTER 2018-04-19 17:14 | Emergency (ER) | payer MEDICARE ==
--- NOTE | 2018-04-19 19:01 | RAD ---
HISTORY: Shortness of breath COMPARISONS: March 25, 2018 VIEWS: 5: Frontal dual-energy and lateral views of the chest. FINDINGS: CARDIOMEDIASTINAL SILHOUETTE: The cardiomediastinal silhouette is normal. LILIANE: The liliane are normal. PLEURA: The costophrenic angles are sharp. No pleural abnormalities are noted. LUNG PARENCHYMA: The lungs are clear. ABDOMEN: The upper abdomen is clear. There is no subphrenic gas. BONES AND SOFT TISSUES: Degenerative changes are noted along the spine. OTHER: None. IMPRESSION: HYPERINFLATION, CONSISTENT WITH COPD. NO ACTIVE CARDIOPULMONARY DISEASE.
[2018-04-19] MEDS ORDERED: NS 0.9% 1000 ML* 1,000 ML IV ONE (20:37)
[2018-04-19 21:04] LABS: ABS Basophils 0.1 10^3/ul (0-0.2); ABS Eosinophils 0.3 10^3/ul (0-0.6); ABS Monocytes 0.7 10^3/ul (0-0.8); ABS Neutrophils 3.8 10^3/ul (1.5-7.7); ABS Nucleated RBC 0 10^3/ul; Eosinophil % 5.7 % (0-6); Hematocrit 34 % (35-47); Hemoglobin 11.1 g/dl (12.0-16.0); Lymphocyte % 17.3 % (25-47); Mean Corpuscular HGB Conc 33 g/dl (31-36); Mean Corpuscular Hemoglobin 29 pg (27-31); Mean Corpuscular Volume 86 fL (80-97); Mean Platelet Volume 6.8 um3 (7.4-10.4); Nucleated Red Blood Cells % 0; Platelet Count 273 10^3/ul (150-450); Red Blood Count 3.89 10^6/ul (4.0-5.4); Red Cell Distribution Width 14 % (10.5-15); White Blood Count 5.9 10^3/ul (3.5-10.8)
[2018-04-19 21:14] LABS: INR 0.9 (0.77-1.02)
[2018-04-19 21:25] LABS: EGFR Non-African American 59.7 (>60)
[2018-04-19] MEDS ORDERED: Potassium Chloride LIQUID* 20 MEQ PACKET PO ONE (21:34)
[2018-04-19] MEDS ORDERED: Iodixanol* (CONTRAST) 320 MG/ML 100 ML SDV IV ONE (21:44)
[2018-04-20 00:40] VITALS: BP 151/72
[2018-04-20 00:46] LABS: Urine Appearance Clear; Urine Blood Negative (Negative); Urine Color Colorless; Urine Ketones Negative (Negative); Urine Protein Negative (Negative); Urine Urobilinogen Negative (Negative)
--- NOTE | 2018-04-20 01:35 | ED ---
Rebel Casillas Tiffany, scribed for Jared De Guzman MD on 04/19/18 at 2033 . Shortness of Breath - HPI Summary HPI Summary: 88 y/o F presents to [facility] complains of shortness of breath that began one week ago. Symptoms aggravated and alleviated by nothing. Reports weakness, ability to ambulate. Pt has been feeling weak for four weeks, since knee surgery in February 2018. Saw PMD today, who saw pt with PE so referred PE to ED. - History of Current Complaint Chief Complaint: EDShortnessOfBreath Time Seen by Provider: 04/19/18 20:15 Hx Obtained From: Patient Onset/Duration: Lasting Weeks - 1, Still Present Aggrevating Factors: Nothing Alleviating Factors: Nothing - Allergy/Home Medications Allergies/Adverse Reactions: Allergies Allergy/AdvReac Type Severity Reaction Status Date / Time hydrocodone [From Vicodin] Allergy Intermediate Nausea And Verified 04/19/18 17: 49 Vomiting PMH/Surg Hx/FS Hx/Imm Hx Previously Healthy: No Endocrine/Hematology History: Reports: Hx Thyroid Disease - hypo Denies: Hx Bone Marrow Disease, Hx Diabetes, Hx Sickle Cell Disease, Hx Anemia Cardiovascular History: Reports: Hx Hypertension Denies: Hx Congestive Heart Failure, Hx Pacemaker/ICD, Other Cardiovascular Problems/Disorders Respiratory History: Reports: Hx Pneumonia, Other Respiratory Problems/ Disorders - PLEURECY, 10-15 years ago Denies: Hx Asthma, Hx Chronic Obstructive Pulmonary Disease (COPD) GI History: Reports: Other GI Disorders - chronic diarhhea History: Denies: Hx Renal Disease Musculoskeletal History: Reports: Hx Arthritis - OSTEO- KNEES, Other Musculoskeletal History - 01/29 BUNION LEFT FOOT removed, CHRONIC LEFT KNEE PAIN Sensory History: Reports: Hx Contacts or Glasses - reading, Hx Hearing Aid - not with her, Hx Hearing Problem Comment Only: Hx Cataracts - removed in September Opthamlomology History: Reports: Hx Contacts or Glasses - reading Comment Only: Hx Cataracts - removed in September Neurological History: Comment Only: Hx Dementia - min cognitive decline Psychiatric History: Reports: Hx Anxiety, Hx Depression Denies: Hx Panic Disorder, Hx Suicide Attempt, Hx of Violent Episodes Against Others, Hx Substance Abuse, Other Psychiatric Issues/Disorders - Cancer History Cancer Type, 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 D&C Hx Anesthesia Reactions: No Infectious Disease History: No Infectious Disease History: Denies: Hx Clostridium Difficile, Hx Hepatitis, Hx Human Immunodeficiency Virus (HIV), Hx of Known/Suspected MRSA, Hx Shingles, Hx Tuberculosis, History Other Infectious Disease, Traveled Outside the [place] in Last 30 Days - Family History Known Family History: Positive: Other - Reviewed and non-contributory Family History: no cardiovascular issues in family lineage - Social History Alcohol Use: None Alcohol Amount: 1 DRINK/WEEK Hx Substance Use: No Substance Use Type: Reports: None Substance Use Comment - Amount & Last Used: ALPRAZOLAM TID PRN- USUALLY DAILY Hx Tobacco Use: Yes Smoking Status (MU): Former Smoker Type: Cigarettes Amount Used/How Often: 2 packs a day Length of Time of Smoking/Using Tobacco: 20+ YRS Have You Smoked in the Last Year: No Review of Systems Positive: Shortness Of Breath Positive: Other - Ability to ambulate Positive: Weakness All Other Systems Reviewed And Are Negative: Yes Physical Exam - Summary Physical Exam Summary: VITAL SIGNS: Reviewed. GENERAL: Patient is a well-developed and nourished (MALE OR FEMALE) who is lying comfortable in the stretcher. Patient is not in any acute respiratory distress. HEAD AND FACE: No signs of trauma. No ecchymosis, hematomas or skull depressions. No sinus tenderness. EYES: PERRLA, EOMI x 2, No injected conjunctiva, no nystagmus. EARS: Hearing grossly intact. Ear canals and tympanic membranes are within normal limits. MOUTH: Oropharynx within normal limits. NECK: Supple, trachea is midline, no adenopathy, no JVD, no carotid bruit, no c- spine tenderness, neck with full ROM. CHEST: Symmetric, no tenderness at palpation LUNGS: Bilateral wheezes CVS: Regular rate and rhythm, S1 and S2 present, no murmurs or gallops appreciated. ABDOMEN: Soft, non-tender. No signs of distention. No rebound no guarding, and no masses palpated. Bowel sounds are normal. EXTREMITIES: FROM in all major joints, no edema, no cyanosis or clubbing. NEURO: Alert and oriented x 3. No acute neurological deficits. Speech is normal and follows commands. SKIN: Dry and warm Triage Information Reviewed: Yes Vital Signs On Initial Exam: Initial Vitals Temp Pulse Resp BP Pulse Ox 98.1 F 98 22 169/100 98 05/30/18 17:46 04/19/18 17:46 04/19/18 17:46 04/19/18 17:46 04/19/18 17:46 Vital Signs Reviewed: Yes Diagnostics - Vital Signs Vital Signs Temp Pulse Resp BP Pulse Ox 04/19/18 20:23 70 17 100 04/19/18 19:48 97.5 F 80 22 155/86 99 04/19/18 17:46 98.1 F 98 22 169/100 98 - Laboratory Result Diagrams: 04/19/18 20:54 04/19/18 20:54 Lab Statement: Any lab studies that have been ordered have been reviewed, and results considered in the medical decision making process. - Radiology CXR Radiology Interpretation Completed By: Radiologist - HYPERINFLATION, CONSISTENT WITH COPD. NO ACTIVE CARDIOPULMONARY DISEASE. ED physician has reviewed this report. - CT Chest/Thorax CT Interpretation Completed By: Radiologist - No PE, no pneumo. ED physician has reviewed this report. - EKG 21:02 Cardiac Rate: NL - 68 BPM EKG Rhythm: Sinus Rhythm EKG Interpretation: Normal axis. Normal interval. No ischemic changes. Re-Evaluation - Re-Evaluation First Eval Re-Evaluation Time: 01:18 Change: Improved Comment: Pt is ready to go home. Course/Dx - Course Course Of Treatment: 88 y/o F presents to [facility] complains of shortness of breath that began one week ago. Imaging, bloodwork, UAs obtained. Pt will be discharged with f/u with PMD in 1-2 days. - Diagnoses Provider Diagnoses: Weakness Discharge - Sign-Out/Discharge Documenting (check all that apply): Discharge/Admit/Transfer - Discharge Plan Condition: Stable Disposition: HOME Patient Education Materials: Weakness (ED) Referrals: Patt Browne MD [Primary Care Provider] - 2 Days Additional Instructions: Follow up with your primary care provider in 1-2 days. Return to the Emergency Department for any new or worsening symptoms. The documentation as recorded by the Rebel aguirre Tiffany accurately reflects the service I personally performed and the decisions made by , Jared De Guzman MD.
--- NOTE | 2018-04-20 07:20 | RAD ---
INDICATION: Weakness, shortness of breath evaluate for pulmonary embolism. COMPARISON: Comparison is made with a prior CT of the chest study from March 25, 2018 and a chest x-ray study from April 19, 2018. TECHNIQUE: A CT angiogram of the chest was performed with intravenous following intravenous injection of 66 ml of Visipaque 320 nonionic contrast. Contiguous axial sections were obtained from the lung apices through the lung bases. Images were reconstructed in the coronal and sagittal planes. FINDINGS: There is relatively homogeneous opacification of the pulmonary arteries. No intraluminal filling defect or pulmonary embolism is seen. The heart is within normal limits in size. No pericardial effusion is present. There is mild ectasia of the ascending thoracic aorta measuring up to 3.9 cm in transverse dimension. The aorta demonstrates homogeneous contrast opacification without evidence for dissection. No significant enlarged mediastinal or hilar lymph nodes are seen. There is bilateral apical pleural and parenchymal scarring. There is mild dependent bilateral lower lobe subsegmental atelectasis. No pleural effusion or pneumothorax is seen. There is a fluid density 1.8 cm lesion in the lateral segment of the left hepatic lobe which is unchanged from the recent prior exam suggestive of a cyst or hemangioma although nonspecific. No significant focal osseous abnormality is seen. IMPRESSION: 1. NO EVIDENCE FOR PULMONARY EMBOLISM. 2. BILATERAL APICAL PLEURAL-PARENCHYMAL SCARRING. 3. FLUID DENSITY LESION IN THE LIVER SUGGESTIVE OF A CYST OR MENINGIOMA, UNCHANGED.
== END 2018-04-20 01:37 | disposition home or self-care (01) ==
LOC: ED 17:14
DX: R53.1 Weakness (principal); J98.4 Other disorders of lung; K76.9 Liver disease, unspecified; Z87.891 Personal history of nicotine dependence; Z88.5 Allergy status to narcotic agent
CPT/HCPCS: 36415; 71046; 71275; 80053; 81003; 84443; 84484; 85025; 85379; 85610; 85730; 87086; 93005; 96360; 96361; 99283; A9270-GY; Q9967